=== PATIENT | male | born 1990 | race Caucasian/White ===

== ENCOUNTER 2019-12-12 18:00 | Emergency (ER) | payer OTHER ==
[~2019-12-12] VITALS: Ht 188 cm; Wt 113.4 kg
--- OUTSIDE RECORDS SUMMARY | ~2019-12-12 | XMS | Encounter Summary ---
Demographics + + + | Address | [address] | | | [place] [address] | + + + | Home Phone | | + + + | Preferred Language | Unknown | + + + | Marital Status | | + + + | Church Affiliation | Unknown | + + + | Race | Unknown | + + + | Ethnic Group | Unknown | + + + Author + + + | Author | [facility] | | | and [place] | + + + | Organization | [facility] | | | and [place] | + + + | Address | Unknown | + + + | Phone | Unavailable | + + + Support + + + + + | Name | Relationship | Address | Phone | + + + + + | Jocelyn Spear | ECON | [address] | | | | | [place], | | | | | [place] [address] | | + + + + + Care Team Providers + +------+ + | Care Animal Assistant Name | Role | Phone | + +------+ + PCP | Unavailable | + +------+ + Encounter Details +--------+ + + + + | Date | Type | Department | Care Team | Description | +--------+ + + + + | 06/18/ | Orders Only | [facility] | Catalino Valdez, | | | 2018 | | CONVERSION DEP [address] | MD [address] | | | | | [address] | [place] [address] | | | | | [place], [place] | [phone] | | | | | [address] | | | | | | [phone] | | | +--------+ + + + + Social History + +-------+ +--------+------+ | Tobacco Use | Types | Packs/Day | Years | Date | | | | | Used | | + +-------+ +--------+------+ | Never Assessed | | | | | + +-------+ +--------+------+ + + + | Sex Assigned at | Date Recorded | | | | + + + | Not on file | | + + + + + + + | Job Start Date | Occupation | Industry | + + + + | Not on file | Not on file | Not on file | + + + + + + + + | Travel History | Travel Start | Travel End | + + + + + + | No recent travel history available. | + + documented as of this encounter Plan of Treatment Not on filedocumented as of this encounter Visit Diagnoses Not on filedocumented in this encounter"
--- OUTSIDE RECORDS SUMMARY | ~2019-12-12 | XMS | Encounter Summary ---
Demographics + + + | Address | [address] | | | [place] [address] | + + + | Home Phone | | + + + | Preferred Language | Unknown | + + + | Marital Status | | + + + | Sikh Affiliation | Unknown | + + + | Race | White | + + + | Ethnic Group | Not or | + + + Author + + + | Author | [facility] | + + + | Organization | [facility] | + + + | Address | Unknown | + + + | Phone | Unavailable | + + + Support + + +---------+ + | Name | Relationship | Address | Phone | + + +---------+ + | Jocelyn Spear | ECON | Unknown | | + + +---------+ + Care Team Providers + +------+ + | Care Patient Escort Name | Role | Phone | + +------+ + | No Pcp Per Patient | PCP | Unavailable | + +------+ + Reason for Visit +--------+ + | Reason | Comments | +--------+ + | Other | Care everywhere query | +--------+ + Encounter Details +--------+ + + + + | Date | Type | Department | Care Team | Description | +--------+ + + + + | 07/06/ | Abstract | Neurology at | [place], | Other (Care | | 2018 | | [facility] & | Steph Becerril MD | everywhere query) | | | | Healing [address] | [address] | | | | | Ave Mailcode: CH8C | [place], [place] | | | | | [facility] | [address] | | | | | and [place], | [phone] | | | | | [facility] | | | | | | Floor [facility] [place] | | | | | | [address] | | | | | | [phone] | | | +--------+ + + + [...]
--- OUTSIDE RECORDS SUMMARY | ~2019-12-12 | XMS | Encounter Summary ---
Demographics + + + | Address | [address] | | | [place] [address] | + + + | Home Phone | | + + + | Preferred Language | Unknown | + + + | Marital Status | | + + + | Quaker Affiliation | Unknown | + + + | Race | Unknown | + + + | Ethnic Group | Unknown | + + + Author + + + | Author | [facility] | | | and [place] | + + + | Organization | [facility] | | | and [place] | + + + | Address | Unknown | + + + | Phone | Unavailable | + + + Support + + + + + | Name | Relationship | Address | Phone | + + + + + | Jocelyn Spear | ECON | [address] | | | | | [place], | | | | | [place] [address] | | + + + + + Care Team Providers + +------+ + | Care Research Aide Name | Role | Phone | + +------+ + PCP | Unavailable | + +------+ + Encounter Details +--------+ + + + + | Date | Type | Department | Care Team | Description | +--------+ + + + + | 12/28/ | Emergency | [facility] | Catalino Valdez, | | | 2017 | | MEDICAL CENTER | MD [address] | | | | | EMERGENCY CENTER | [place] [address] | | | | | [address] | [phone] | | | | | [place], [place] | | | | | | [address] | | | | | | [phone] | | | +--------+ + + + [...] + + documented as of this encounter Last Filed Vital Signs + + + + + | Vital Sign | Reading | Time Taken | Comments | + + + + + | Blood Pressure | 136/82 | 12/28/2017 11:42 AM | | | | | PDT | | + + + + + | Pulse | 88 | 12/28/2017 11:42 AM | | | | | PDT | | + + + + + | Temperature | 37.2 C (98.9 F) | 12/28/2017 11:42 AM | | | | | PDT | | + + + + + | Respiratory Rate | 18 | 12/28/2017 11:42 AM | | | | | PDT | | + + + + + | Oxygen Saturation | - | - | | + + + + + | Inhaled Oxygen | - | - | | | Concentration | | | | + + + + + | Weight | 100.7 kg (222 lb) | 12/28/2017 11:42 AM | | | | | PDT | | + + + + + | Height | - | - | | + + + + + | Body Mass Index | 28.5 | 03/07/2017 1:09 PM | | | | | PDT | | + + + + + documented in this encounter Plan of Treatment Not on filedocumented as of this encounter Visit Diagnoses Not on filedocumented in this encounter"
--- OUTSIDE RECORDS SUMMARY | ~2019-12-12 | XMS | Encounter Summary ---
Demographics + + + | Address | [address] | | | [place] [address] | + + + | Home Phone | | + + + | Preferred Language | Unknown | + + + | Marital Status | | + + + | Mandaeism Affiliation | Unknown | + + + | Race | White | + + + | Ethnic Group | Not or | + + + Author + + + | Author | [facility] | + + + | Organization | [facility] | + + + | Address | Unknown | + + + | Phone | Unavailable | + + + Support + + +---------+ + | Name | Relationship | Address | Phone | + + +---------+ + | Jocelyn Spear | ECON | Unknown | | + + +---------+ + Care Team Providers + +------+ + | Care Air Conditioning Manager Name | Role | Phone | + [...] Other (Care | | 2018 | | [facility] & | Steph Becerril MD | everywhere query) | | | | Healing [address] | [address] | | | | | Ave Mailcode: CH8C | [place], [place] | | | | | [facility] | [address] | | | | | and [place], | [phone] | | | | | [facility] | | | | | | Floor [facility] [place] | | | | | | [address] | | | | | | [phone] | | | +--------+ + + + [...]
--- OUTSIDE RECORDS SUMMARY | ~2019-12-12 | XMS | Encounter Summary ---
Demographics + + + | Address | [address] | | | [place] [address] | + + + | Home Phone | | + + + | Preferred Language | Unknown | + + + | Marital Status | | + + + | Restorationism Affiliation | Unknown | + + + | Race | Unknown | + + + | Ethnic Group | Unknown | + + + Author + + + | Author | [facility] | | | and [place] | + + + | Organization | [facility] | | | and [place] | + + + | Address | Unknown | + + + | Phone | Unavailable | + + + Support + + + + + | Name | Relationship | Address | Phone | + + + + + | Jocelyn Spear | ECON | [address] | | | | | [place], | | | | | [place] [address] | | + + + + + Care Team Providers + +------+ + | Care Equipment Application Specialist Name | Role | Phone | + +------+ + PCP | Unavailable | + +------+ + Encounter Details +--------+ + + + + | Date | Type | Department | Care Team | Description | +--------+ + + + + | 12/28/ | Emergency | [facility] | Jered Curtis, | Bronchitis | | 2018 | | MEDICAL CENTER | MD [address] | | | | | EMERGENCY [place] | [place] | | | | | [address] | [address] | | | | | [place] | | | | | | [address] | | | | | | [phone] | | | +--------+ + + + [...] + + + | Blood Pressure | 121/70 | 12/28/2017 2:34 PM | | | | | PDT | | + + + + + | Pulse | 78 | 12/28/2017 2:34 PM | | | | | PDT | | + + + + + | Temperature | 36.6 C (97.9 F) | 12/28/2017 2:34 PM | | | | | PDT | | + + + + + | Respiratory Rate | 14 | 12/28/2017 2:34 PM | | | | | PDT | | + + + + + | Oxygen Saturation | - | - | | + + + + + | Inhaled Oxygen | - | - | | | Concentration | | | | + + + + + | Weight | 100.8 kg (222 lb 3.5 | 12/28/2017 2:34 PM | | | | oz) | PDT | | + + + + + | Height | 188 cm (6' 2") | 12/28/2017 2:34 PM | | | | | PDT | | + + + + + | Body Mass Index | 28.53 | 12/28/2017 2:34 PM | | | | | PDT | | + + + + + documented in this encounter Progress Notes Amy Levine ARNP - 12/28/2017 2:35 PM PDT Progress Notes by DAVE Dao at 12/28/17 5231 Author: DAVE Dao Service: Emergency Department Author Type: Nurse Melva nova Filed: 12/28/17 1624 Date of Service: 12/28/17 6599 Status: Signed Car Ferrier: DAVE Dao (Nurse Practitioner) Reviewed. No further action is necessary at this time. documented in th is encounter Plan of Treatment Not on filedocumented as of this encounter Procedures + +--------+ + + + | Procedure Name | Priori | Date/Time | Associated Diagnosis | Comments | | | ty | | | | + +--------+ + + + | XR CHEST 2 VIEWS | Routin | 12/28/2017 | | Results for this | | | e | 2:02 PM | | procedure are in the | | | | PDT | | results section. | + +--------+ + + + documented in this encounter Results XR Chest 2 Vws (12/28/2017 2:02 PM PDT) + + | Specimen | + + | | + + + + + | Impressions | Performed At | + + + | 1. No acute cardiopulmonary process noted. Electronically | | | signed by Garrett Gabriel MD on 12/28/2017 2:04 PM | | + + + + + + | Narrative | Performed At | + + + | [facility] 1990 27 years XR CHEST 2 VIEW FRONTAL AND | | | LATERAL 12/28/2017 2:02 PM INDICATION: Shortness of breath. | | | COMPARISON study: 10/28/2017 at 2138 hours TECHNIQUE: 2 views | | | FINDINGS: Lungs appear clear. Cardiomediastinal silhouette appears | | | unremarkable. Chronic appearing mild anterior wedge compression of 2 | | | mid thoracic spine vertebral bodies. No pleural effusion seen. | | + + + + + | Procedure Note | + + | Giuliano Thompson Conversion - 03/15/2019 5:46 AM PDT [facility] yearsXR CHEST | | 2 VIEW FRONTAL AND LATERAL12/28/2017 2:02 PM INDICATION: Shortness of breath. COMPARISON | | study: 10/28/2017 at 2138 hours TECHNIQUE: 2 views FINDINGS: Lungs appear clear. | | Cardiomediastinal silhouette appears unremarkable. Chronic appearing mild anterior wedge | | compression of 2 mid thoracic spine vertebral bodies. No pleural effusion seen. | | IMPRESSION: 1. No acute cardiopulmonary process noted. | | | |COMPARISON study: 10/28/2017 at 2138 hours | | | |TECHNIQUE: 2 views | | | |FINDINGS: Lungs appear clear. Cardiomediastinal silhouette appears unremarkable. Chronic a ppearing mild anterior wedge compression of 2 mid thoracic spine vertebral bodies. No pleura l effusion seen. | | | |IMPRESSION: | |1. No acute cardiopulmonary process noted. | | | | | + + documented in this encounter Visit Diagnoses + + | Diagnosis | + + | Bronchitis Bronchitis, not specified as acute or chronic | + + documented in this encounter
--- OUTSIDE RECORDS SUMMARY | ~2019-12-12 | XMS | Clinical Summary ---
Demographics + + + | Address | [address] | | | [place] [address] | + + + | Home Phone | | + + + | Preferred Language | Unknown | + + + | Marital Status | | + + + | Congregation Affiliation | Unknown | + + + | Race | Unknown | + + + | Ethnic Group | Unknown | + + + Author + + + | Author | [facility] | | | and [place] | + + + | Organization | [facility] | | | and [place] | + + + | Address | Unknown | + + + | Phone | Unavailable | + + + Support + + + + + | Name | Relationship | Address | Phone | + + + + + | Jocelyn Spear | ECON | [address] | | | | | [place], | | | | | [place] [address] | | + + + + + Care Team Providers + +------+ + | Care Unit Manager Name | Role | Phone | + +------+ + PCP | Unavailable | + +------+ + Allergies + + + + + + | Active Allergy | Reactions | Severity | Noted | Comments | | | | | Date | | + + + + + + | Bee Venom | Anaphylaxis | High | 03/07/20 | | | | | | 17 | | + + + + + + | Erythromycin | Hives | High | 09/12/19 | Hives | | | | | 16 | | + + + + + + | Penicillins | Hives | High | 09/12/19 | Hives | | | | | 16 | | + + + + + + Medications + + + +---------+------+------+-------+ | Medication | Sig | Dispensed | Refills | Star | End | Statu | | | | | | t | Date | s | | | | | | Date | | | + + + +---------+------+------+-------+ | | Take 1-2 tablets by | 20 | 0 | 11/1 | | Activ | | HYDROcodone-acetamin | mouth every 6 (six) | tablet | | /20 | | e | | ophen (NORCO) 5-325 | hours as needed for | | | 18 | | | | mg per tablet | Pain. Do not exceed | | | | | | | | 8 in a 24 hour | | | | | | | | period. Do not take | | | | | | | | Tylenol, as this | | | | | | | | medication has | | | | | | | | Tylenol in it. | | | | | | + + + +---------+------+------+-------+ Active Problems Not on file Social History + +-------+ +--------+------+ | Tobacco Use | Types | Packs/Day | Years | Date | | | | | Used | | + +-------+ +--------+------+ | Current Every Day | | 0.5 | | | | Smoker | | | | | + +-------+ [...] recent travel history available. | + + Last Filed Vital Signs + + + + + | Vital Sign | Reading | Time Taken | Comments | + + + + + | Blood Pressure | 118/70 | 06/21/2018 11:06 PM | | | | | PST | | + + + + + | Pulse | 87 | 06/21/2018 11:06 PM | | | | | PST | | + + + + + | Temperature | 36.5 C (97.7 F) | 06/21/2018 11:06 PM | | | | | PST | | + + + + + | Respiratory Rate | 20 | 06/21/2018 11:06 PM | | | | | PST | | + + + + + | Oxygen Saturation | - | - | | + + + + + | Inhaled Oxygen | - | - | | | Concentration | | | | + + + + + | Weight | 111.6 kg (246 lb 0.5 | 06/21/2018 11:06 PM | | | | oz) | PST | | + + + + + | Height | 188 cm (6' 2") | 12/28/2017 2:34 PM | | | | | PDT | | + + + + + | Body Mass Index | 31.59 | 12/28/2017 2:34 PM | | | | | PDT | | + + + + + Plan of Treatment + + + + + | Health Maintenance | Due Date | Last Done | Comments | + + + + + | Vaccine: | | | | | Pneumococcal 19-64 | 6 | | | | (1 of 1 - PPSV23) | | | | + + + + + | Vaccine: | | | | | Dtap/Tdap/Td (1 - | 1 | | | | Tdap) | | | | + + + + + | Vaccine: Influenza | | | | | (Season Ended) | 0 | | | + + + + + Results Not on filefrom Last 3 Months
--- OUTSIDE RECORDS SUMMARY | ~2019-12-12 | XMS | Encounter Summary ---
Demographics + + + | Address | [address] | | | [place] [address] | + + + | Home Phone | | + + + | Preferred Language | Unknown | + + + | Marital Status | | + + + | Uatsdin Affiliation | Unknown | + + + | Race | Unknown | + + + | Ethnic Group | Unknown | + + + Author + + + | Author | [facility] | | | and [place] | + + + | Organization | [facility] | | | and [place] | + + + | Address | Unknown | + + + | Phone | Unavailable | + + + Support + + + + + | Name | Relationship | Address | Phone | + + + + + | Jocelyn Spear | ECON | [address] | | | | | [place], | | | | | [place] [address] | | + + + + + Care Team Providers + +------+ + | Care Vision Therapist Name | Role | Phone | + +------+ + PCP | Unavailable | + +------+ + Encounter Details +--------+ + + + + | Date | Type | Department | Care Team | Description | +--------+ + + + + | 11/17/ | Emergency | [facility] | Catalino Valdez, | Muscle spasm; Acute | | 2018 | | [facility] | MD Janelle PLASCENCIA | midline low back | | | | [facility] | [place] [address] | pain without | | | | [address] | [phone] | sciatica | | | | [place], [place] | | | | | | [address] | | | | | | [phone] | | | +--------+ + + + [...] + + + | Blood Pressure | 126/76 | 06/18/2018 8:05 PM | | | | | PST | | + + + + + | Pulse | 92 | 06/18/2018 8:05 PM | | | | | PST | | + + + + + | Temperature | 36.4 C (97.6 F) | 06/18/2018 8:05 PM | | | | | PST | | + + + + + | Respiratory Rate | 16 | 06/18/2018 8:05 PM | | | | | PST | | + + + + + | Oxygen Saturation | - | - | | + + + + + | Inhaled Oxygen | - | - | | | Concentration | | | | + + + + + | Weight | 99.8 kg (220 lb) | 06/18/2018 8:05 PM | | | | | PST | | + + + + + | Height | - | - | | + + + + + | Body Mass Index | 28.25 | 12/28/2017 2:34 PM | | | | | PDT | | + + + + + documented in this encounter Medications at Time of Discharge + + + +---------+ + + | Medication | Sig | Dispensed | Refills | Start | End Date | | | | | | Date | | + + + +---------+ + + | | Take 1-2 tablets by | 20 | 0 | 11/17/20 | | | HYDROcodone-acetamin | mouth every 6 (six) | tablet | | 18 | | | ophen (NORCO) 5-325 | hours as needed for | | | | | | mg per tablet [...] in it. | | | | | + + + +---------+ + + documented as of this encounter Plan of Treatment Not on filedocumented as of this encounter Procedures + +--------+ + + + | Procedure Name | Priori | Date/Time | Associated Diagnosis | Comments | | | ty | | | | + +--------+ + + + | XR LUMBAR SPINE 2 OR | Routin | 06/18/2018 | | Results for this | | 3 VW | e | 6:52 PM | | procedure are in the | | | | PST | | results section. | + +--------+ + + + | EXTERNAL LAB: CBC | Routin | 06/18/2018 | | Results for this | | | e | 6:23 PM | | procedure are in the | | | | PST | | results section. | + +--------+ + + + | SEDIMENTATION RATE, | Routin | 06/18/2018 | | Results for this | | AUTOMATED | e | 6:23 PM | | procedure are in the | | | | PST | | results section. | + +--------+ + + + | C-REACTIVE PROTEIN | Routin | 06/18/2018 | | Results for this | | | e | 6:23 PM | | procedure are in the | | | | PST | | results section. | + +--------+ + + + | COMPREHENSIVE | Routin | 06/18/2018 | | Results for this | | METABOLIC PANEL | e | 6:23 PM | | procedure are in the | | | | PST | | results section. | + +--------+ + + + documented in this encounter Results XR Lumbar Spine 2 or 3 Vw (06/18/2018 6:52 PM PST) + + | Specimen | + + | | + + + + + | Impressions | Performed At | + + + | FINDINGS/ IMPRESSION: 1. No acute fracture. Deformity of the left | | | L4 transverse process, possible developmental or sequel of remote | | | trauma, better evaluated on CT dated 03/07/2017. 2. Loss of lumbar | | | lordosis. No listhesis 3. Mildly decreased intervertebral disc | | | height at L5-S1. 4. Subtle sclerosis about both sacroiliac joints, | | | possible bilateral sacroiliitis, incompletely evaluated. Dedicated | | | sacroiliac joint radiographs can be considered for further evaluation | | | as clinically warranted. | | + + + + + + | Narrative | Performed At | + + + | [facility] 1990 XR LUMBAR SPINE LIMITED 2-3 VIEW | | | 06/18/2018 6:52 PM INDICATION: Back pain COMPARISON: None | | | TECHNIQUE: Lumbar spine series, 3 views | | + + + + + | Procedure Note | + + | Giuliano Thompson Nomi - 03/15/2019 5:46 AM PDT [facility]1990XR LUMBAR SPINE | | LIMITED 2-3 VIEW06/18/2018 6:52 PM INDICATION: Back pain COMPARISON: None TECHNIQUE: | | Lumbar spine series, 3 views IMPRESSION: FINDINGS/ IMPRESSION:1. No acute fracture. | | Deformity of the left L4 transverse process, possible developmental or sequel of remote | | trauma, better evaluated on CT dated 03/07/2017.2. Loss of lumbar lordosis. No | | listhesis3. Mildly decreased intervertebral disc height at L5-S1.4. Subtle sclerosis | | about both sacroiliac joints, possible bilateral sacroiliitis, incompletely evaluated. | | Dedicated sacroiliac joint radiographs can be considered for further evaluation as | | clinically warranted. | |TECHNIQUE: Lumbar spine series, 3 views | | | |IMPRESSION: | |FINDINGS/ IMPRESSION: | |1. No acute fracture. Deformity of the left L4 transverse process, possible developmental or sequel of remote trauma, better evaluated on CT dated 03/07/2017. | |2. Loss of lumbar lordosis. No listhesis | |3. Mildly decreased intervertebral disc height at L5-S1. | |4. Subtle sclerosis about both sacroiliac joints, possible bilateral sacroiliitis, incompl etely evaluated. Dedicated sacroiliac joint radiographs can be considered for further evalua tion as clinically warranted. | | | | | + + Sedimentation rate, automated (06/18/2018 6:23 PM PST) + + + + + + | Component | Value | Ref Range | Performed | Pathologist | | | | | At | Signature | + + + + + + | Sed Rate | 14Comment: Testing | 0 - 15 mm/Hr | EXTERNAL | | | | performed at [facility], [address] | | LAB | | | | [address], | | | | | | [place] [address] | | | | + + + + + + + + | Specimen | + + | Blood specimen | | (specimen) | + + + +---------+ + + | Performing | Address | City/State/Zipcode | Phone Number | | Organization | | | | + +---------+ + + | EXTERNAL LAB | | | | + +---------+ + + External Lab: CBC (06/18/2018 6:23 PM PST) + + + + + + | Component | Value | Ref Range | Performed | Pathologist | | | | | At | Signature | + + + + + + | WBC | 15.83 (H) | 3.80 - 11.00 | EXTERNAL | | | | | K/uL | LAB | | + + + + + + | Red Blood | 5.43 | 4.20 - 5.70 | EXTERNAL | | | Cells | | M/uL | LAB | | | Counted | | | | | + + + + + + | Hemoglobin | 16.3 | 13.2 - 17.0 | EXTERNAL | | | | | g/dL | LAB | | + + + + + + | Hematocrit, | 47.3 | 39.0 - 50.0 % | EXTERNAL | | | POC | | | LAB | | + + + + + + | MCV | 87.1 | 80.0 - 100.0 fl | EXTERNAL | | | | | | LAB | | + + + + + + | MCH | 30.0 | 27.0 - 34.0 pg | EXTERNAL | | | | | | LAB | | + + + + + + | MCHC | 34.5 | 32.0 - 35.5 | EXTERNAL | | | | | g/dL | LAB | | + + + + + + | RDW-CV | 40.2 | 37 - 53 fl | EXTERNAL | | | | | | LAB | | + + + + + + | Platelet | 347 | 150 - 400 K/uL | EXTERNAL | | | Count | | | LAB | | | Plasma | | | | | + + + + + + | MPV | 9.4 | fl | EXTERNAL | | | | | | LAB | | + + + + + + | Differentia | AUTOMATED | | EXTERNAL | | | l Type | | | LAB | | + + + + + + | Nucleated | 0.0 | /100WBC | EXTERNAL | | | Red Blood | | | LAB | | | Cells | | | | | + + + + + + | % Segmented | 57.80 | % | EXTERNAL | | | | | | LAB | | | Neutrophils | | | | | + + + + + + | % Immature | 0.30 | % | EXTERNAL | | | Granulocyte | | | LAB | | | s | | | | | + + + + + + | % | 30.40 | % | EXTERNAL | | | Lymphocytes | | | LAB | | + + + + + + | % Monocytes | 6.80 | % | EXTERNAL | | | | | | LAB | | + + + + + + | % | 3.90 | % | EXTERNAL | | | Eosinophils | | | LAB | | + + + + + + | % Basophils | 0.80 | % | EXTERNAL | | | | | | LAB | | + + + + + + | Absolute | 9.14 (H) | 1.90 - 7.40 | EXTERNAL | | | Segmented | | K/uL | LAB | | | Neutrophils | | | | | + + + + + + | Absolute | 0.05 | K/uL | EXTERNAL | | | Immature | | | LAB | | | Granulocyte | | | | | | s | | | | | + + + + + + | Absolute | 4.82 (H) | 1.00 - 3.90 | EXTERNAL | | | Lymphocytes | | K/uL | LAB | | + + + + + + | Absolute | 1.08 (H) | 0.00 - 0.80 | EXTERNAL | | | Monocytes | | K/uL | LAB | | + + + + + + | Absolute | 0.61 (H) | 0.00 - 0.50 | EXTERNAL | | | Eosinophils | | K/uL | LAB | | + + + + + + | Absolute | 0.13 (H)Comment: Testing | 0.00 - 0.10 | EXTERNAL | | | Basophils | performed at [facility], [address] | | | | [address], | | | | | | [place] [address] | | | | + + + + + + + + | Specimen | + + | Blood specimen | | (specimen) | + + + +---------+ + + | Performing | Address | City/State/Zipcode | Phone Number | | Organization | | | | + +---------+ + + | EXTERNAL LAB | | | | + +---------+ + + C-Reactive Protein (06/18/2018 6:23 PM PST) + + + + + + | Component | Value | Ref Range | Performed | Pathologist | | | | | At | Signature | + + + + + + | CRP | 1.7 (H)Comment: Testing | mg/dL | EXTERNAL | | | | performed at [facility], [address] | | LAB | | | | [address], | | | | | | [place] [address] | | | | + + + + + + + + | Specimen | + + | Blood specimen | | (specimen) | + + + +---------+ + + | Performing | Address | City/State/Zipcode | Phone Number | | Organization | | | | + +---------+ + + | EXTERNAL LAB | | | | + +---------+ + + Comprehensive Metabolic Panel (06/18/2018 6:23 PM PST) + + + + + + | Component | Value | Ref Range | Performed | Pathologist | | | | | At | Signature | + + + + + + | Na | 139 | 135 - 145 | EXTERNAL | | | | | mmol/L | LAB | | + + + + + + | K | 3.8 | 3.5 - 4.9 | EXTERNAL | | | | | mmol/L | LAB | | + + + + + + | Cl | 103 | 99 - 109 mmol/L | EXTERNAL | | | | | | LAB | | + + + + + + | CO2 | 25 | 23 - 32 mmol/L | EXTERNAL | | | | | | LAB | | + + + + + + | Anion Gap | 15 | 5 - 20 mmol/L | EXTERNAL | | | | | | LAB | | + + + + + + | Glucose, | 89 | 65 - 99 mg/dL | EXTERNAL | | | Fasting | | | LAB | | + + + + + + | BUN | 15 | 8 - 25 mg/dL | EXTERNAL | | | | | | LAB | | + + + + + + | Creatinine | 1.01 | 0.70 - 1.30 | EXTERNAL | | | | | mg/dL | LAB | | + + + + + + | BUN/Creatin | 15 | | EXTERNAL | | | ine Ratio | | | LAB | | + + + + + + | Calcium | 9.3 | 8.5 - 10.5 | EXTERNAL | | | | | mg/dL | LAB | | + + + + + + | Protein, | 7.7 | 6.3 - 8.2 g/dL | EXTERNAL | | | Total | | | LAB | | + + + + + + | Albumin | 3.9 | 3.6 - 5.0 g/dL | EXTERNAL | | | | | | LAB | | + + + + + + | Globulin | 3.8 | 1.3 - 4.9 g/dL | EXTERNAL | | | | | | LAB | | + + + + + + | A/G Ratio | 1.0 | 1.0 - 2.4 | EXTERNAL | | | | | | LAB | | + + + + + + | Bilirubin | 0.3 | 0.1 - 1.5 mg/dL | EXTERNAL | | | Total | | | LAB | | + + + + + + | ALP, | 76 | 35 - 115 U/L | EXTERNAL | | | External | | | LAB | | + + + + + + | AST | 19 | 10 - 45 U/L | EXTERNAL | | | | | | LAB | | + + + + + + | ALT | 54 | 10 - 65 U/L | EXTERNAL | | | | | | LAB | | + + + + + + | Estimated | >60Comment: GFR <60: | mL/min/1.73m2 | EXTERNAL | | | GFR | CHRONIC KIDNEY DISEASE, | | LAB | | | | IF FOUND OVER A 3 MONTH | | | | | | PERIOD.GFR <15: KIDNEY | | | | | | FAILURE.FOR | | | | | | AMERICANS, MULTIPLY THE | | | | | | CALCULATED GFR BY | | | | | | 1.210.This eGFR is | | | | | | calculated using the | | | | | | MDRD IDMS traceable | | | | | | equation.Testing | | | | | | performed at [facility], [address] | | | | | | [address], | | | | | | [place] [address] | | | | + + + + + + + + | Specimen | + + | Blood specimen | | (specimen) | + + + +---------+ + + | Performing | Address | City/State/Zipcode | Phone Number | | Organization | | | | + +---------+ + + | EXTERNAL LAB | | | | + +---------+ + + documented in this encounter Visit Diagnoses + + | Diagnosis | + + | Muscle spasm Spasm of muscle | + + | Acute midline low back pain without sciatica | + + documented in this encounter"
--- OUTSIDE RECORDS SUMMARY | ~2019-12-12 | XMS | Encounter Summary ---
Demographics + + + | Address | [address] | | | [place] [address] | + + + | Home Phone | | + + + | Preferred Language | Unknown | + + + | Marital Status | | + + + | Congregational Affiliation | Unknown | + + + | Race | Unknown | + + + | Ethnic Group | Unknown | + + + Author + + + | Author | [facility] | | | and [place] | + + + | Organization | [facility] | | | and [place] | + + + | Address | Unknown | + + + | Phone | Unavailable | + + + Support + + + + + | Name | Relationship | Address | Phone | + + + + + | Jocelyn Spear | ECON | [address] | | | | | [place], | | | | | [place] [address] | | + + + + + Care Team Providers + +------+ + | Care Wind Operations Supervisor Name | Role | Phone | + +------+ + PCP | Unavailable | + +------+ + Encounter Details +--------+ + + + + | Date | Type | Department | Care Team | Description | +--------+ + + + + | 09/27/ | Emergency | [facility] | Chad Ole[facility] | Unspecified Chest | | 2006 | | [facility] | MD [place] [address] | Pain | | | | EMERG[facility]Y CENTER | [place], [place] | | | | | [address] | [address] | | | | | [place], [place] | [phone] | | | | | [address] | | | | | | [phone] | | | +--------+ + + + [...] filedocumented as of this encounter Visit Diagnoses + + | Diagnosis | + + | Chest pain, unspecified | + + documented in this encounter"
--- OUTSIDE RECORDS SUMMARY | ~2019-12-12 | XMS | Encounter Summary ---
Demographics + + + | Address | [address] | | | [place] [address] | + + + | Home Phone | | + + + | Preferred Language | Unknown | + + + | Marital Status | | + + + | Anabaptist Affiliation | Unknown | + + + | Race | Unknown | + + + | Ethnic Group | Unknown | + + + Author + + + | Author | [facility] | | | and [place] | + + + | Organization | [facility] | | | and [place] | + + + | Address | Unknown | + + + | Phone | Unavailable | + + + Support + + + + + | Name | Relationship | Address | Phone | + + + + + | Jocelyn Spear | ECON | [address] | | | | | [place], | | | | | [place] [address] | | + + + + + Care Team Providers + +------+ + | Care Mva Still Operator Name | Role | Phone | + +------+ + PCP | Unavailable | + +------+ + Encounter Details +--------+ + + + + | Date | Type | Department | Care Team | Description | +--------+ + + + + | 10/23/ | Hospital | [facility] | Allan Albright MD | OTHER CHEST PAIN; | | 2011 - | Encounter | MEDICAL CENTER | [address] | Syncope and | | | | CLINICAL DECISION | [place] [address] | collapse; | | 10/24/ | | [address] | [phone] | 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 | | [place], [place] | | cannabis abuse, | | | | [address] | | unspecified; Tobacco | | | | [phone] | | use disorder; | | | | | | Family history of | | | | | | ischemic heart | | | | | | disease; Unspecified | | | | | | chest pain | +--------+ + + + + Social [...] | + +--------+ + + + | ECHO COMPLETE | Routin | 10/24/2010 | | Results for this | | | e | 7:45 AM | | procedure are in the | | | | PDT | | results section. | + +--------+ + + + | XR CHEST 2 VIEWS | Routin | 10/23/2010 | | Results for this | | | e | 6:30 PM | | procedure are in the | | | | PDT | | results section. | + +--------+ + + + documented in this encounter Results ECHO Complete (10/24/2010 7:45 AM PDT) + + | Specimen | + + | | + + + + + | Narrative | Performed At | + + + | [place] [address] | | | Patient Name: KENY SPEAR Date of : | | | 1990 Medical Record: [id number] Account: [id number] | | | Exam Date/Time: 10/24/2010 07:05 Performing | | | Physician: Kirk Berrios MD Order Detail: [id number] Exam Description: | | | ECHO CARDIAC ADULT WITH DOPPLER COLOR FLOW | | | | | | INDICATIONS evaluate lv fxn & valvular fxn | | | CONCLUSIONS 1. Essentially normal study. 2. Sinus | | | rhythm. 3. Overall left ventricular systolic function is normal with, | | | an EF between 65 - 70 %. 4. The right ventricle is normal in size | | | and function. 5. The left atrium is normal in size. 6. The right | | | atrium is mildly enlarged. 7. The aortic valve is trileaflet, and | | | appears anatomically normal. No aortic stenosis or regurgitation. 8. | | | Normal appearing mitral valve. 9. The tricuspid valve appears | | | structurally normal. 10. Mild tricuspid regurgitation present. 11. | | | Pulmonic valve appears structurally normal. 12. There is no | | | pericardial effusion. FINDINGS -------- ECG rhythm: Sinus | | | rhythm. Study: A 2-dimensional transthoracic echocardiogram with | | | m-mode, spectral and color flow Doppler was perfomed. Study: This was | | | a technically adequate study. Left Ventricle: Overall left | | | ventricular systolic function is normal with, an EF between 65 - 70 %. | | | Left Ventricle: The left ventricle cavity size is normal. Left | | | Ventricle: Left ventricular wall thickness is normal. Right | | | Ventricle: The right ventricle is normal in size and function. Left | | | Atrium: The left atrium is normal in size. Left Atrium: The left | | | atrial size is normal Left Atrium: , and the LA measures 3.4cm. | | | Right Atrium: The right atrium is mildly enlarged Right Atrium: , and | | | the RA measures 5.1cm. Aortic Valve: The aortic valve is trileaflet, | | | and appears anatomically normal. No aortic stenosis or regurgitation. | | | Mitral Valve: Normal appearing mitral valve. Tricuspid Valve: The | | | tricuspid valve appears structurally normal. Tricuspid Valve: Mild | | | tricuspid regurgitation present. Tricuspid Valve: Right ventricular | | | systolic pressure (pulmonary artery systolic pressure) is normal at < | | | 35 mmHg. Pulmonic Valve: Pulmonic valve appears structurally normal. | | | Pericardium: There is no pericardial effusion. IVC/Hepatic Veins: | | | The inferior vena cava is normal in size and collapses > 50 % with | | | sniff, indicating normal central venous pressures. Mass: No mass | | | visualized Thrombus: No clot visualized Septum: No ASD observed. | | | Septum: No VSD observed. MEASUREMENTS Ao Diam: | | | 3.49 cm IVC: 1.46 cm LA Diam: 3.44 cm LA Major: 5.28 cm | | | LVOT Diam: 2.23 cm RA Major: 5.06 cm RVIDd: 3.34 cm Ao | | | Diam: 3.46 cm AV Cusp: 2.43 cm LA Diam: 3.91 cm LA/Ao: | | | 1.13 %FS: 36.17 % EDV(Teich): 118.24 ml EF(Teich): 65.58 % | | | ESV(Teich): 40.69 ml IVSd: 0.90 cm IVSs: 1.11 cm LVIDd: | | | 5.00 cm LVIDs: 3.19 cm LVPWd: 0.85 cm LVPWs: 1.22 cm | | | SV(Teich): 77.54 ml D-E Excursion: 2.66 cm E-F Ware: 0.20 | | | m/s HR: 53.21 BPM AV maxP.38 mmHg AV meanP.94 mmHg | | | AV Vmax: 1.26 m/s AV Vmean: 0.77 m/s AV VTI: 25.84 cm | | | SAMIA Vmax: 3.20 cm2 SAMIA (VTI): 2.87 cm2 LVCI Dopp: 1.78 | | | l/minm2 LVCO Dopp: 4.15 l/min HR: 55.96 BPM LVOT maxPG: | | | 4.28 mmHg LVOT meanP.82 mmHg LVSI Dopp: 31.85 ml/m2 LVSV | | | Dopp: 74.21 ml LVOT Vmax: 1.03 m/s LVOT Vmean: 0.61 m/s | | | LVOT VTI: 18.95 cm MV A Mansoor: 0.37 m/s MV DecT: 199.93 ms | | | MV E Mansoor: 0.88 m/s MV E/A Ratio: 2.39 MV PHT: 59.05 ms MVA | | | By PHT: 3.72 cm2 MV A Dur: 121.99 ms Septal e': 0.13 m/s | | | Septal E/e': 6.36 Lateral e': 0.17 m/s Lateral E/e': 4.94 | | | P Vein A: 0.21 m/s P Vein A Dur: 88.72 ms P Vein D: 0.77 | | | m/s P Vein S/D Ratio: 0.91 P Vein S: 0.70 m/s HR: 53.74 | | | BPM PV maxP.77 mmHg PV meanP.09 mmHg PV Vmax: 0.83 | | | m/s PV Vmean: 0.46 m/s PV VTI: 16.39 cm RAP: 5 mmHg | | | RVSP: 23.17 mmHg TR maxP.17 mmHg TR Vmax: 2.13 m/s TV | | | A Mansoor: 0.25 m/s TV Dec Ware: 2.14 m/s2 TV Dec Time: | | | 252.95 ms TV E Mansoor: 0.54 m/s TV E/A Ratio: 2.09 | | | Resident Intern: AG Authenticated by: Kirk Berrios MD Report Date/Time: | | | 10-24-2010 11:42:19 | | + + + + + | Procedure Note | + + | Giuliano Thompson Conversion - 03/25/2019 3:07 PM [facility] | | [place], [place] [address]Yn: Patient Name: Caren SPEAR of : | | 1990Medical Record: [id number]: [id number] | | Date/Time: 10/24/2010 07:05Performing Physician: Kirk Berrios MDOrder Detail: | | Description: ECHO CARDIAC ADULT WITH DOPPLER COLOR | | FLOW INDICATIONS | | -evaluate lv fxn & valvular fxn CONCLUSIONS 1. Essentially normal study.2. | | Sinus rhythm.3. Overall left ventricular systolic function is normal with, an EF between | | 65 - 70 %.4. The right ventricle is normal in size and function.5. The left atrium is | | normal in size.6. The right atrium is mildly enlarged.7. The aortic valve is trileaflet, | | and appears anatomically normal. No aortic stenosis or regurgitation.8. Normal | | appearing mitral valve.9. The tricuspid valve appears structurally normal.10. Mild | | tricuspid regurgitation present.11. Pulmonic valve appears structurally normal.12. There | | is no pericardial effusion. FINDINGS--------ECG rhythm: Sinus rhythm.Study: A | | 2-dimensional transthoracic echocardiogram with m-mode, spectral and color flow Doppler | | was perfomed.Study: This was a technically adequate study.Left Ventricle: Overall left | | ventricular systolic function is normal with, an EF between 65 - 70 %.Left Ventricle: | | The left ventricle cavity size is normal.Left Ventricle: Left ventricular wall thickness | | is normal.Right Ventricle: The right ventricle is normal in size and function.Left | | Atrium: The left atrium is normal in size.Left Atrium: The left atrial size is | | normalLeft Atrium: , and the LA measures 3.4cm.Right Atrium: The right atrium is mildly | | enlargedRight Atrium: , and the RA measures 5.1cm.Aortic Valve: The aortic valve is | | trileaflet, and appears anatomically normal. No aortic stenosis or regurgitation.Mitral | | Valve: Normal appearing mitral valve.Tricuspid Valve: The tricuspid valve appears | | structurally normal.Tricuspid Valve: Mild tricuspid regurgitation present.Tricuspid | | Valve: Right ventricular systolic pressure (pulmonary artery systolic pressure) is | | normal at < 35 mmHg.Pulmonic Valve: Pulmonic valve appears structurally | | normal.Pericardium: There is no pericardial effusion.IVC/Hepatic Veins: The inferior | | vena cava is normal in size and collapses > 50 % with sniff, indicating normal central | | venous pressures.Mass: No mass visualizedThrombus: No clot visualizedSeptum: No ASD | | observed.Septum: No VSD observed. MEASUREMENTS Ao Diam: 3.49 cmIVC: 1.46 | | cmLA Diam: 3.44 cmLA Major: 5.28 cmLVOT Diam: 2.23 cmRA Major: 5.06 cmRVIDd: | | 3.34 cmAo Diam: 3.46 cmAV Cusp: 2.43 cmLA Diam: 3.91 cmLA/Ao: 1.13%FS: 36.17 | | %EDV(Teich): 118.24 mlEF(Teich): 65.58 %ESV(Teich): 40.69 mlIVSd: 0.90 cmIVSs: | | 1.11 cmLVIDd: 5.00 cmLVIDs: 3.19 cmLVPWd: 0.85 cmLVPWs: 1.22 cmSV(Teich): | | 77.54 mlD-E Excursion: 2.66 cmE-F Ware: 0.20 m/sHR: 53.21 BPMAV maxP.38 | | mmHgAV meanP.94 mmHgAV Vmax: 1.26 m/Casi Vmean: 0.77 m/Casi VTI: 25.84 cmAVA | | Vmax: 3.20 cm2AVA (VTI): 2.87 lg1UBHP Dopp: 1.78 l/ryau5KBZR Dopp: 4.15 l/minHR: | | 55.96 BPMLVOT maxP.28 mmHgLVOT meanP.82 mmHgLVSI Dopp: 31.85 ml/m2LVSV | | Dopp: 74.21 mlLVOT Vmax: 1.03 m/sLVOT Vmean: 0.61 m/sLVOT VTI: 18.95 cmMV A Mansoor: | | 0.37 m/sMV DecT: 199.93 msMV E Mansoor: 0.88 m/sMV E/A Ratio: 2.39MV PHT: 59.05 | | msMVA By PHT: 3.72 cm2MV A Dur: 121.99 msSeptal e': 0.13 m/sSeptal E/e': | | 6.36Lateral e': 0.17 m/sLateral E/e': 4.94P Vein A: 0.21 m/sP Vein A Dur: 88.72 | | msP Vein D: 0.77 m/sP Vein S/D Ratio: 0.91P Vein S: 0.70 m/sHR: 53.74 BPMPV | | maxP.77 mmHgPV meanP.09 mmHgPV Vmax: 0.83 m/sPV Vmean: 0.46 m/sPV VTI: | | 16.39 cmRAP: 5 mmHgRVSP: 23.17 mmHgTR maxP.17 mmHgTR Vmax: 2.13 m/sTV A | | Mansoor: 0.25 m/sTV Dec Ware: 2.14 m/s2TV Dec Time: 252.95 msTV E Mansoor: 0.54 m/sTV | | E/A Ratio: 2.09 Resident Intern: CMAuthenticated by: Kirk Berrios MDReport Date/Time: | | 10-24-2010 11:42:19 | |Aortic Valve: The aortic valve is trileaflet, and appears anatomically normal. No aortic st enosis or regurgitation. | |Mitral Valve: Normal appearing mitral valve. | |Tricuspid Valve: The tricuspid valve appears structurally normal. | |Tricuspid Valve: Mild tricuspid regurgitation present. | |Tricuspid Valve: Right ventricular systolic pressure (pulmonary artery systolic pressure) i s normal at < 35 mmHg. | |Pulmonic Valve: Pulmonic valve appears structurally normal. | |Pericardium: There is no pericardial effusion. | |IVC/Hepatic Veins: The inferior vena cava is normal in size and collapses > 50 % with sniff , indicating normal central venous pressures. | |Mass: No mass visualized | |Thrombus: No clot visualized | |Septum: No ASD observed. | |Septum: No VSD observed. | | | |MEASUREMENTS | | | |Ao Diam: 3.49 cm | |IVC: 1.46 cm | |LA Diam: 3.44 cm | |LA Major: 5.28 cm | |LVOT Diam: 2.23 cm | |RA Major: 5.06 cm | |RVIDd: 3.34 cm | |Ao Diam: 3.46 cm | |AV Cusp: 2.43 cm | |LA Diam: 3.91 cm | |LA/Ao: 1.13 | |%FS: 36.17 % | |EDV(Teich): 118.24 ml | |EF(Teich): 65.58 % | |ESV(Teich): 40.69 ml | |IVSd: 0.90 cm | |IVSs: 1.11 cm | |LVIDd: 5.00 cm | |LVIDs: 3.19 cm | |LVPWd: 0.85 cm | |LVPWs: 1.22 cm | |SV(Teich): 77.54 ml | |D-E Excursion: 2.66 cm | |E-F Ware: 0.20 m/s | |HR: 53.21 BPM | |AV maxP.38 mmHg | |AV meanP.94 mmHg | |AV Vmax: 1.26 m/s | |AV Vmean: 0.77 m/s | |AV VTI: 25.84 cm | |SAMIA Vmax: 3.20 cm2 | |SAMIA (VTI): 2.87 cm2 | |LVCI Dopp: 1.78 l/minm2 | |LVCO Dopp: 4.15 l/min | |HR: 55.96 BPM | |LVOT maxP.28 mmHg | |LVOT meanP.82 mmHg | |LVSI Dopp: 31.85 ml/m2 | |LVSV Dopp: 74.21 ml | |LVOT Vmax: 1.03 m/s | |LVOT Vmean: 0.61 m/s | |LVOT VTI: 18.95 cm | |MV A Mansoor: 0.37 m/s | |MV DecT: 199.93 ms | |MV E Mansoor: 0.88 m/s | |MV E/A Ratio: 2.39 | |MV PHT: 59.05 ms | |MVA By PHT: 3.72 cm2 | |MV A Dur: 121.99 ms | |Septal e': 0.13 m/s | |Septal E/e': 6.36 | |Lateral e': 0.17 m/s | |Lateral E/e': 4.94 | |P Vein A: 0.21 m/s | |P Vein A Dur: 88.72 ms | |P Vein D: 0.77 m/s | |P Vein S/D Ratio: 0.91 | |P Vein S: 0.70 m/s | |HR: 53.74 BPM | |PV maxP.77 mmHg | |PV meanP.09 mmHg | |PV Vmax: 0.83 m/s | |PV Vmean: 0.46 m/s | |PV VTI: 16.39 cm | |RAP: 5 mmHg | |RVSP: 23.17 mmHg | |TR maxP.17 mmHg | |TR Vmax: 2.13 m/s | |TV A Mansoor: 0.25 m/s | |TV Dec Ware: 2.14 m/s2 | |TV Dec Time: 252.95 ms | |TV E Mansoor: 0.54 m/s | |TV E/A Ratio: 2.09 | | | |Resident Intern: CM | |Authenticated by: Kirk Berrios MD | |Report Date/Time: 10-24-2010 11:42:19 | + + XR Chest 2 Vws (10/23/2010 6:30 PM PDT) + + | Specimen | + + | | + + + + + | Narrative | Performed At | + + + | [facility] [id number] Ph: | | | Patient Name: DURAN KENY Bowman Date of : | | | 1990 Medical Record: [id number] Account: [id number] | | | Exam Date/Time: 10/23/2010 17:43 Ordering | | | Physician: TANIA CHUA Order Detail: [id number] Exam Description: | | | XR CHEST 2 VIEW | | | KENY | | | Colby SPEAR XR CHEST 2 VIEW 10/23/2010 5:43 PM HISTORY: 20 years. | | | Male. Chest pain TECHNIQUE: PA and lateral views of the chest | | | are obtained using dual energy technique. COMPARISON: . | | | FINDINGS: The heart is normal in size. The lungs are | | | normally expanded. The pulmonary vascular pattern is normal. No | | | acute airspace disease, parenchymal nodule, mass, pleural effusion or | | | pneumothorax is noted. No hilar adenopathy is seen. The osseous | | | structures are intact. IMPRESSION: 1. No acute airspace | | | disease. | | | 11:30 PM | | + + + + + | Procedure Note | + + | Jay, Rad Conversion - 03/25/2019 3:07 PM PDT | | [facility] | | [facility] [address] | | | | | | Patient Name: KENY SPEAR | | Date of : 1990 | | Medical Record: [id number] | | Account: [id number] | | | | | | Exam Date/Time: 10/23/2010 17:43 | | Ordering Physician: TANIA CHUA | | Order Detail: [id number] | | Exam Description: XR CHEST 2 VIEW | | | | KENY Bowman SPEAR | | XR CHEST 2 VIEW | | 10/23/2010 5:43 PM | | | | HISTORY: | | 20 years. Male. Chest pain | | | | TECHNIQUE: | | PA and lateral views of the chest are obtained using dual energy technique. | | | | COMPARISON: | | . | | | | FINDINGS: | | The heart is normal in size. The lungs are normally expanded. The | | pulmonary vascular pattern is normal. No acute airspace disease, | | parenchymal nodule, mass, pleural effusion or pneumothorax is noted. No | | hilar adenopathy is seen. The osseous structures are intact. | | | | IMPRESSION: | | 1. No acute airspace disease. | | | | | + + documented in this encounter Visit Diagnoses + + | Diagnosis | + + | Other chest pain | + + | Syncope and collapse | + + | Cannabis abuse, unspecified | + + | Tobacco use disorder | + + | Family history of ischemic heart disease | + + | Chest pain, unspecified | + + documented in this encounter"
--- OUTSIDE RECORDS SUMMARY | ~2019-12-12 | XMS | Clinical Summary ---
Demographics + + + | Address | [address] | | | [place] [address] | + + + | Home Phone | | + + + | Preferred Language | Unknown | + + + | Marital Status | | + + + | Congregation Affiliation | Unknown | + + + | Race | White | + + + | Ethnic Group | Not or | + + + Author + + + | Author | [facility] | + + + | Organization | [facility] | + + + | Address | Unknown | + + + | Phone | Unavailable | + + + Support + + +---------+ + | Name | Relationship | Address | Phone | + + +---------+ + | Jocelyn Spear | ECON | Unknown | | + + +---------+ + Care Team Providers + +------+ + | Care Crepe Laminator Operator Name | Role | Phone | + +------+ + | No Pcp Per Patient | PCP | Unavailable | + +------+ + Source Comments [facility] is fully live on both [facility] and [facility] Allergies + + + + + + | Active Allergy | Reactions | Severity | Noted | Comments | | | | | Date | | + + + + + + | Amoxicillin | Anaphylaxis | High | 06/29/20 | | | | | | 18 | | + + + + + + | Erythromycin | Hives | High | 09/12/19 | | | | | | 16 | | + + + + + + | Penicillins | Anaphylaxis | High | 06/29/20 | | | | | | 18 | | + + + + + + | Venom-Honey Bee | Anaphylaxis | High | 03/07/20 | [...] + + + +---------+------+------+-------+ | | Take 5-325 mg by | | 0 | 07/02 | | Activ | | oxyCODONE-acetaminop | mouth as needed. | | | 08/21 | | e | | hen 5-325 mg oral | | | | 18 | | | | tablet | | | | | | | + + + +---------+------+------+-------+ Active Problems Not on file Family History + + +------+ + | Medical History | Relation | Name | Comments | + + +------+ + | No Known Problems | Father | | | + + +------+ + | No Known Problems | Mother | | | + + +------+ + + +------+--------+ + | Relation | Name | Status | Comments | + +------+--------+ + | Father | | | | + +------+--------+ + | Mother | | | | + +------+--------+ + Social History + + + +--------+ + | Tobacco Use | Types | Packs/Day | Years | Date | | | | | Used | | + + + +--------+ + | Current Every Day | Cigarettes | 1 | | Started: 07/19/2004 | | Smoker | | | | | + + + +--------+ + + +---+---+---+ | Smokeless Tobacco: | | | | | Never Used | | | | + +---+---+---+ + + | Tobacco Cessation: Ready to Quit: Yes | + + + + +---------+ + | Alcohol Use | Drinks/Week | oz/Week | Comments | + + +---------+ + | Yes | | | 1 a month | + + +---------+ + + + + | Sex Assigned at [...] + + Last Filed Vital Signs + +---------+ + + | Vital Sign | Reading | Time Taken | Comments | + +---------+ + + | Blood Pressure | 121/82 | 07/19/2018 8:34 AM | | | | | PST | | + +---------+ + + | Pulse | 88 | 07/19/2018 8:34 AM | | | | | PST | | + +---------+ + + | Temperature | - | - | | + +---------+ + + | Respiratory Rate | - | - | | + +---------+ + + | Oxygen Saturation | - | - | | + +---------+ + + | Inhaled Oxygen | - | - | | | Concentration | | | | + +---------+ + + | Weight | - | - | | + +---------+ + + | Height | - | - | | + +---------+ + + | Body Mass Index | - | - | | + +---------+ + + Plan of Treatment + + + + + | Health Maintenance | Due Date | Last Done | Comments | + + + + + | Pneumococcal | | | | | vaccination (1 of 1 | 6 | | | | - PPSV23) | | | | + + + + + | Influenza (Flu) | | 06/05/2016, 05/27/2013, | | | vaccination (#1) | 9 | 04/07/2011 | | + + + + + Results Not on filefrom Last 3 Months Insurance + +--------+ +--------+-------+---------+--------+ | Payer | Benefi | Subscriber | Effect | Phone | Address | Type | | | t Plan | ID | josé | | | | | | / | | Dates | | | | | | Group | | | | | | + +--------+ +--------+-------+---------+--------+ | ENERGY SALES CONSULTANT MEDICAID | ENERGY SALES CONSULTANT | xxxxxxxx | 4/23/2 | | | Medica | | | [place] | | 018-Pr | | | id | | | [place] | | esent | | | | + +--------+ +--------+-------+---------+--------+ + +--------+ +--------+ + + | Guarantor Name | Accoun | Relation to | Date | Phone | Billing Address | | | t Type | Patient | of | | | | | | | | | | + +--------+ +--------+ + + | Trevin Spear A | Person | Self [birth year] | [address] | | | al/Fam | | 1990 | [phone] | | | [place] | | | [address] (Home) | [place] [address] | + +--------+ +--------+ + +"
--- OUTSIDE RECORDS SUMMARY | ~2019-12-12 | XMS | Encounter Summary ---
Demographics + + + | Address | [address] | | | [place] [address] | + + + | Home Phone | | + + + | Preferred Language | Unknown | + + + | Marital Status | | + + + | Sabianism Affiliation | Unknown | + + + | Race | White | + + + | Ethnic Group | Not or | + + + Author + + + | Author | [facility] | + + + | Organization | [facility] | + + + | Address | Unknown | + + + | Phone | Unavailable | + + + Support + + +---------+ + | Name | Relationship | Address | Phone | + + +---------+ + | Jocelyn Spear | ECON | Unknown | | + + +---------+ + Care Team Providers + +------+ + | Care Travel Manager Name | Role | Phone | + +------+ + | No Pcp Per Patient | PCP | Unavailable | + +------+ + Encounter Details +--------+ + + + + | Date | Type | Department | Care Team | Description | +--------+ + + + + | 10/16/ | Outside | UNKNOWN DEPARTMENT | Other, Faculty | | | 2010 | Records | [address] | [phone] | | | | | [address] | | | | | | [place], [place] | | | | | | [address] | | | +--------+ + + + [...] | + +--------+ + + + | OUTSIDE RADIOLOGY - | | 10/16/2010 | | Results for this | | CT | | 12:00 AM | | procedure are in the | | | | PDT | | results section. | + +--------+ + + + documented in this encounter Results OUTSIDE RADIOLOGY - CT (10/16/2010 12:00 AM PDT) + + + | Narrative | Performed At | + + + | | | + + + documented in this encounter Visit Diagnoses Not on filedocumented in this encounter"
--- OUTSIDE RECORDS SUMMARY | ~2019-12-12 | XMS | Encounter Summary ---
Demographics + + + | Address | [address] | | | [place] [address] | + + + | Home Phone | | + + + | Preferred Language | Unknown | + + + | Marital Status | | + + + | Catholic Affiliation | Unknown | + + + | Race | White | + + + | Ethnic Group | Not or | + + + Author + + + | Author | [facility] | + + + | Organization | [facility] | + + + | Address | Unknown | + + + | Phone | Unavailable | + + + Support + + +---------+ + | Name | Relationship | Address | Phone | + + +---------+ + | Jocelyn Spear | ECON | Unknown | | + + +---------+ + Care Team Providers + +------+ + | Care Sleep Scientist Name | Role | Phone | + +------+ + | No Pcp Per Patient | PCP | Unavailable | + +------+ + Encounter Details +--------+ + + + + | Date | Type | Department | Care Team | Description | +--------+ + + + + | 07/20/ | MyChart | Neurology at | [facility] | RE: Results | | 2018 | Encounter | [facility] & | MD Jerrica [address] | | | | | Healing [address] | [address] | | | | | [place] Mailcode: CH8C | [place], [place] | | | | | [facility] | [address] | | | | | and Healing, | [phone] | | | | | | | | | | | Floor [place], [place] | | | | | | [address] | | | | | | [phone] | | | +--------+ + + + + Social History + + + +--------+ [...] | | | + +---+---+---+ + + +---------+ + | Alcohol Use [...]
--- OUTSIDE RECORDS SUMMARY | ~2019-12-12 | XMS | Encounter Summary ---
Demographics + + + | Address | [address] | | | [place] [address] | + + + | Home Phone | | + + + | Preferred Language | Unknown | + + + | Marital Status | | + + + | Latter Day Affiliation | Unknown | + + + | Race | White | + + + | Ethnic Group | Not or | + + + Author + + + | Author | [facility] | + + + | Organization | [facility] | + + + | Address | Unknown | + + + | Phone | Unavailable | + + + Support + + +---------+ + | Name | Relationship | Address | Phone | + + +---------+ + | Jocelyn Spear | ECON | Unknown | | + + +---------+ + Care Team Providers + +------+ + | Care Mineral Resources Inspector Name | Role | Phone | + +------+ + | No Pcp Per Patient | PCP | Unavailable | + +------+ + Reason for Visit + + + | Reason | Comments | + + + | Test Results | EEG | + + + Encounter Details +--------+ + + + + | Date | Type | Department | Care Team | Description | +--------+ + + + + | 07/27/ | MyChart | Neurology at | [facility] | Test results | | 2018 | Encounter | [facility] & | MD Jerrica [address] | | | | | Healing [address] | [address] | | | | | [place] Mailcode: CH8C | [place], [place] | | | | | [facility] | [address] | | | | | and [place], | [phone] | | | | | [facility] | | | | | | Floor [place], [place] | | | | | | [address] | | | | | | [phone] | | | +--------+ + + + [...]
--- OUTSIDE RECORDS SUMMARY | ~2019-12-12 | XMS | Encounter Summary ---
Demographics + + + | Address | [address] | | | [place] [address] | + + + | Home Phone | | + + + | Preferred Language | Unknown | + + + | Marital Status | | + + + | Scientologist Affiliation | Unknown | + + + | Race | Unknown | + + + | Ethnic Group | Unknown | + + + Author + + + | Author | [facility] | | | and [place] | + + + | Organization | [facility] | | | and [place] | + + + | Address | Unknown | + + + | Phone | Unavailable | + + + Support + + + + + | Name | Relationship | Address | Phone | + + + + + | Jocelyn Spear | ECON | [address] | | | | | [place], | | | | | [place] [address] | | + + + + + Care Team Providers + +------+ + | Care Bone Density Technician Name | Role | Phone | + +------+ + PCP | Unavailable | + +------+ + Encounter Details +--------+ + + + + | Date | Type | Department | Care Team | Description | +--------+ + + + + | 06/21/ | Emergency | [facility] | Kesha Hoyt, | Lumbar pain; | | 2018 | | [facility] | MD [address] | Degenerative disc | | | | EMERGENCY CENTER | [place] [address] | disease, lumbar; | | | | [address] | [phone] | Seizure-like | | | | [place], [place] | | activity ([facility]) | | | | [address] | | | | | | [phone] | | | +--------+ + + + [...] tablets by | 20 | 0 | // | | | HYDROcodone-acetamin | mouth every [...] | + +--------+ + + + | MRI LUMBAR SPINE WO | Routin | 06/21/2018 | | Results for this | | CONTRAST | e | 10:42 PM | | procedure are in the | | | | PST | | results section. | + +--------+ + + + | URINALYSIS, REFLEX | Routin | 06/21/2018 | | Results for this | | MICROSCOPIC AND/OR | e | 10:24 PM | | procedure are in the | | CULTURE | | PST | | results section. | + +--------+ + + + | EXTERNAL LAB: CBC | Routin | 06/21/2018 | | Results for this | | | e | 9:07 PM | | procedure are in the | | | | PST | | results section. | + +--------+ + + + | SEDIMENTATION RATE, | Routin | 06/21/2018 | | Results for this | | AUTOMATED | e | 9:07 PM | | procedure are in the | | | | PST | | results section. | + +--------+ + + + | C-REACTIVE PROTEIN | Routin | 06/21/2018 | | Results for this | | | e | 9:07 PM | | procedure are in the | | | | PST | | results section. | + +--------+ + + + | COMPREHENSIVE | Routin | 06/21/2018 | | Results for this | | METABOLIC PANEL | e | 9:07 PM | | procedure are in the | | | | PST | | results section. | + +--------+ + + + documented in this encounter Results MRI Lumbar Spine wo Contrast (06/21/2018 10:42 PM PST) + + | Specimen | + + | | + + + + | Addenda | + + | Addendum by Gray Hardy MD on 07/15/2018 4:13 PM Correction to | | history: Lumbar spine pain for one month. | + + + + + | Impressions | Performed At | + + + | 1. Disc abnormality at L5-S1, as above, may affect the left S1 | | | nerve root in its lateral recess. 2. Multilevel degenerative | | | disc disease and facet arthropathy/ligamentum flavum hypertrophy, as | | | above, without spinal canal stenosis. | | + + + + + + | Narrative | Performed At | + + + | 06/21/2018 10:42 PM HISTORY: Lumbar spine for one month. | | | TECHNIQUE: Imaging was performed on a 1.5 Sumi MRI unit. Standard | | | multiplanar sequences were obtained without contrast. COMPARISON: | | | Lumbar spine radiographs June 18, 2018. FINDINGS: The spinal | | | alignment is intact. No fracture or worrisome bone lesion is seen. | | | Mild disc height loss is noted at L5-S1 with associated disc | | | desiccation. The conus medullaris terminates at the L2 level, | | | appearing normal. The following findings are noted at these | | | levels: L1-L2: Other than mild bilateral facet arthropathy and | | | ligamentum flavum hypertrophy, normal. L2-L3: Minimal broad-based | | | disc bulge without significant spinal or neural foraminal stenosis. | | | Mild bilateral facet arthropathy and ligamentum flavum hypertrophy. | | | L3-L4: Minimal broad-based disc bulge inducing minimal bilateral | | | neural foraminal narrowing. Mild bilateral facet arthropathy and | | | ligamentum flavum hypertrophy without significant spinal canal | | | stenosis. L4-L5: Minimal broad-based disc bulge inducing minimal | | | bilateral neural foraminal narrowing. Mild to moderate bilateral facet | | | arthropathy and ligamentum flavum hypertrophy without significant | | | spinal canal stenosis. L5-S1: Mild to moderate broad-based disc | | | bulge, eccentric to the left. Left eccentric component contacts the | | | left S1 nerve root in its lateral recess, slightly posteriorly | | | displacing the structure. Patent spinal canal. Mild bilateral neural | | | foraminal narrowing. Mild bilateral facet arthropathy. The | | | abdominal aorta and visualized portion of the kidneys are normal. | | + + + + + | Procedure Note | + + | Jay, Rad Conversion - 03/15/2019 5:46 AM PDT 06/21/2018 10:42 PM HISTORY:Lumbar | | spine for one month. TECHNIQUE:Imaging was performed on a 1.5 Sumi MRI unit. Standard | | multiplanar sequences were obtained without contrast. COMPARISON:Lumbar spine | | radiographs June 18, 2018. FINDINGS:The spinal alignment is intact. No fracture or | | worrisome bone lesion is seen. Mild disc height loss is noted at L5-S1 with associated | | disc desiccation. The conus medullaris terminates at the L2 level, appearing normal. The | | following findings are noted at these levels: L1-L2: Other than mild bilateral facet | | arthropathy and ligamentum flavum hypertrophy, normal. L2-L3: Minimal broad-based disc | | bulge without significant spinal or neural foraminal stenosis. Mild bilateral facet | | arthropathy and ligamentum flavum hypertrophy. L3-L4: Minimal broad-based disc bulge | | inducing minimal bilateral neural foraminal narrowing. Mild bilateral facet arthropathy | | and ligamentum flavum hypertrophy without significant spinal canal stenosis. L4-L5: | | Minimal broad-based disc bulge inducing minimal bilateral neural foraminal narrowing. | | Mild to moderate bilateral facet arthropathy and ligamentum flavum hypertrophy without | | significant spinal canal stenosis. L5-S1: Mild to moderate broad-based disc bulge, | | eccentric to the left. Left eccentric component contacts the left S1 nerve root in its | | lateral recess, slightly posteriorly displacing the structure. Patent spinal canal. Mild | | bilateral neural foraminal narrowing. Mild bilateral facet arthropathy. The abdominal | | aorta and visualized portion of the kidneys are normal. IMPRESSION: 1. Disc | | abnormality at L5-S1, as above, may affect the left S1 nerve root in its lateral recess. | | 2. Multilevel degenerative disc disease and facet arthropathy/ligamentum flavum | | hypertrophy, as above, without spinal canal stenosis. | | | |L5-S1: Mild to moderate broad-based disc bulge, eccentric to the left. Left eccentric compo nent contacts the left S1 nerve root in its lateral recess, slightly posteriorly displacing the structure. Patent spinal canal. Mild bilateral neural foraminal | |narrowing. Mild bilateral facet arthropathy. | | | |The abdominal aorta and visualized portion of the kidneys are normal. | | | |IMPRESSION: | | | |1. Disc abnormality at L5-S1, as above, may affect the left S1 nerve root in its lateral recess. | | | |2. Multilevel degenerative disc disease and facet arthropathy/ligamentum flavum hypertroph y, as above, without spinal canal stenosis. | | | | | + + Urinalysis, Reflex Microscopic and/or Culture (06/21/2018 10:24 PM PST) + + + + + + | Component | Value | Ref Range | Performed | Pathologist | | | | | At | Signature | + + + + + + | Color | YELLOW | | EXTERNAL | | | | | | LAB | | + + + + + + | Clarity | CLEAR | | EXTERNAL | | | | | | LAB | | + + + + + + | Specific | 1.009 | 1.002 - 1.030 | EXTERNAL | | | [place], | | | LAB | | | Urine | | | | | + + + + + + | Leukocyte | NEGATIVE | | EXTERNAL | | | Esterase, | | | LAB | | | Urine | | | | | + + + + + + | Nitrite, | NEGATIVE | | EXTERNAL | | | Urine | | | LAB | | + + + + + + | Urobilinoge | NORMAL | mg/dL | EXTERNAL | | | n, Urine | | | LAB | | + + + + + + | Protein, | NEGATIVE | mg/dL | EXTERNAL | | | Urine | | | LAB | | + + + + + + | pH, Urine | 6.0 | 5.0 - 8.0 | EXTERNAL | | | | | | LAB | | + + + + + + | Blood, | SMALL (A) | | EXTERNAL | | | Urine | | | LAB | | + + + + + + | Ketones | NEGATIVE | mg/dL | EXTERNAL | | | | | | LAB | | + + + + + + | Bilirubin, | NEGATIVE | | EXTERNAL | | | Urine | | | LAB | | + + + + + + | Glucose, | NEGATIVE | mg/dL | EXTERNAL | | | Urine | | | LAB | | + + + + + + | WBC, UA | NONE SEEN | 0 - 5 /hpf | EXTERNAL | | | | | | LAB | | + + + + + + | RBC, UA | 0-2 | 0 - 2 /hpf | EXTERNAL | | | | | | LAB | | + + + + + + | Bacteria, | NONE SEEN | | EXTERNAL | | | UA | | | LAB | | + + + + + + | Epithelial | NONE SEENComment: | /lpf | EXTERNAL | | | Cells | Testing performed at | | LAB | | | | [facility] | | | | | | [facility];[place] [address] | | | | + + + + + + + + | Specimen | + + | | + + + +---------+ + + | Performing | Address | City/State/Zipcode | Phone Number | | Organization | | | | + +---------+ + + | EXTERNAL LAB | | | | + +---------+ + + Sedimentation rate, automated (06/21/2018 9:07 PM PST) + + + + + + | Component | Value | Ref Range | Performed | Pathologist | | | | | At | Signature | + + + + + + | Sed Rate | 8Comment: Testing | 0 - 15 mm/Hr | EXTERNAL | | | | performed at [facility];[address] | | LAB | | | | [address];[place], [place] | | | | | | [address] | | | | + + + [...] + +---------+ + + External Lab: CBC (06/21/2018 9:07 PM PST) + + + + + + | Component | Value | Ref Range | Performed | Pathologist | | | | | At | Signature | + + + + + + | WBC | 16.85 (H) | 3.80 - 11.00 | EXTERNAL | | | | | K/uL | LAB | | + + + + + + | Red Blood | 5.09 | 4.20 - 5.70 | EXTERNAL | | | Cells | | M/uL | LAB | | | Counted | | | | | + + + + + + | Hemoglobin | 15.0 | 13.2 - 17.0 | EXTERNAL | | | | | g/dL | LAB | | + + + + + + | Hematocrit, | 43.8 | 39.0 - 50.0 % | EXTERNAL | | | POC | | | LAB | | + + + + + + | MCV | 86.0 | 80.0 - 100.0 fl | EXTERNAL | | | | | | LAB | | + + + + + + | MCH | 29.5 | 27.0 - 34.0 pg | EXTERNAL | | | | | | LAB | | + + + + + + | MCHC | 34.3 | 32.0 - 35.5 | EXTERNAL | | | | | g/dL | LAB | | + + + + + + | RDW-CV | 41.6 | 37 - 53 fl | EXTERNAL | | | | | | LAB | | + + + + + + | Platelet | 335 | 150 - 400 K/uL | EXTERNAL | | | Count | | | LAB | | | Plasma | | | | | + + + + + + | MPV | 8.0 | fl | EXTERNAL | | | | | | LAB | | + + + + + + | Differentia | AUTOMATED | | EXTERNAL | | | l Type | | | LAB | | + + + + + + | % Segmented | 63.45 | % | EXTERNAL | | | | | | LAB | | | Neutrophils | | | | | + + + + + + | % | 26.66 | % | EXTERNAL | | | Lymphocytes | | | LAB | | + + + + + + | % Monocytes | 4.72 | % | EXTERNAL | | | | | | LAB | | + + + + + + | % | 4.26 | % | EXTERNAL | | | Eosinophils | | | LAB | | + + + + + + | % Basophils | 0.91 | % | EXTERNAL | | | | | | LAB | | + + + + + + | Absolute | 10.69 (H) | 1.90 - 7.40 | EXTERNAL | | | Segmented | | K/uL | LAB | | | Neutrophils | | | | | + + + + + + | Absolute | 4.49 (H) | 1.00 - 3.90 | EXTERNAL | | | Lymphocytes | | K/uL | LAB | | + + + + + + | Absolute | 0.80 | 0.00 - 0.80 | EXTERNAL | | | Monocytes | | K/uL | LAB | | + + + + + + | Absolute | 0.72 (H) | 0.00 - 0.50 | EXTERNAL | | | Eosinophils | | K/uL | LAB | | + + + + + + | Absolute | 0.15 (H)Comment: Testing | 0.00 - 0.10 | EXTERNAL | | | Basophils | performed at [facility];[address] | [address] | LAB | | | | [address];[place] | | | | | | [address] | | | | + + + + + + + + | Specimen | + + | Blood specimen | | (specimen) | + + + +---------+ + + | Performing | Address | City/State/Zipcode | Phone Number | | Organization | | | | + +---------+ + + | EXTERNAL LAB | | | | + +---------+ + + C-Reactive Protein (06/21/2018 9:07 PM PST) + + + + + + | Component | Value | Ref Range | Performed | Pathologist | | | | | At | Signature | + + + + + + | CRP | 0.5 (H)Comment: Testing | mg/dL | EXTERNAL | | | | performed at [facility] | | LAB | | | | [address];[place], [place] | | | | | | [address] | | | | + + + + + + + + | Specimen | + + | | + + + +---------+ + + | Performing | Address | City/State/Zipcode | Phone Number | | Organization | | | | + +---------+ + + | EXTERNAL LAB | | | | + +---------+ + + Comprehensive Metabolic Panel (06/21/2018 9:07 PM PST) + + + + + + | Component | Value | Ref Range | Performed | Pathologist | | | | | At | Signature | + + + + + + | Na | 139 | 135 - 145 | EXTERNAL | | | | | mmol/L | LAB | | + + + + + + | K | 3.5Comment: SLT | 3.5 - 4.9 | EXTERNAL | | | | HEMOLYSIS | mmol/L | LAB | | + + + + + + | Cl | 105 | 99 - 109 mmol/L | EXTERNAL | | | | | | LAB | | + + + + + + | CO2 | 27 | 23 - 32 mmol/L | EXTERNAL | | | | | | LAB | | + + + + + + | Anion Gap | 10 | 5 - 20 mmol/L | EXTERNAL | | | | | | LAB | | + + + + + + | Glucose, | 107 (H) | 65 - 99 mg/dL | EXTERNAL | | | Fasting | | | LAB | | + + + + + + | BUN | 9 | 8 - 25 mg/dL | EXTERNAL | | | | | | LAB | | + + + + + + | Creatinine | 0.98 | 0.70 - 1.30 | EXTERNAL | | | | | mg/dL | LAB | | + + + + + + | BUN/Creatin | 10 | | EXTERNAL | | | ine Ratio | | | LAB | | + + + + + + | Calcium | 8.6 | 8.5 - 10.5 | EXTERNAL | | | | | mg/dL | LAB | | + + + + + + | Protein, | 7.2 | 6.3 - 8.2 g/dL | EXTERNAL | | | Total | | | LAB | | + + + + + + | Albumin | 3.6 | 3.6 - 5.0 g/dL | EXTERNAL | | | | | | LAB | | + + + + + + | Globulin | 3.6 | 1.3 - 4.9 g/dL | EXTERNAL [...] + + + + | ALP, | 64 | 35 - 115 U/L | EXTERNAL | | | External | | | LAB | | + + + + + + | AST | 26Comment: SLT HEMOLYSIS | 10 - 45 U/L | EXTERNAL | | | | | | LAB | | + + + + + + | ALT | 45 | 10 - 65 U/L | EXTERNAL [...] | | | | | performed at [facility];[address] | | | | | | [facility];[place], [place] | | | | | | [address] | | | | + + + [...] + | Diagnosis | + + | Lumbar pain Lumbago | + + | Degenerative disc disease, lumbar Degeneration of lumbar or lumbosacral | | intervertebral disc | + + | Seizure-like activity (HCC) Other convulsions | + + documented in this encounter"
--- OUTSIDE RECORDS SUMMARY | ~2019-12-12 | XMS | Encounter Summary ---
Demographics + + + | Address | [address] | | | [place] [address] | + + + | Home Phone | | + + + | Preferred Language | Unknown | + + + | Marital Status | | + + + | Confucianism Affiliation | Unknown | + + + [...] + | Jocelyn Spear | ECON | [address] | | | | | [place], | | | | | [place] [address] | | + + + + + Care Team Providers + +------+ + | Care Fast Food Crew Lead Name | Role | Phone | + [...] low back | | | | [facility] | [place] [address] | pain without | | | | [address] | [phone] | sciatica | | | | [place], [place] | | | | | | [address] | | | | | | [phone] | | | +--------+ + + + [...] EXTERNAL | | | | performed at [facility], [address] | | LAB | | | | [address], | | | | | | [place] [address] | | | | + + + [...] | | | Basophils | performed at [facility], [address] | [address] | LAB | | | | [address], | | | | | | [place] [address] | | | | + + + [...] EXTERNAL | | | | performed at [facility], [address] | | LAB | | | | [address], | | | | | | [place] [address] | | | | + + + [...] | | | | | performed at [facility], [address] | | | | | | [address], | | | | | | [place] [address] | | | | + + + [...]
--- OUTSIDE RECORDS SUMMARY | ~2019-12-12 | XMS | Encounter Summary ---
Demographics + + + | Address | [address] | | | [place] [address] | + + + | Home Phone | | + + + | Preferred Language | Unknown | + + + | Marital Status | | + + + | Advent Affiliation | Unknown | + + + | Race | White | + + + | Ethnic Group | Not or | + + + Author + + + | Author | [facility] | + + + | Organization | [facility] | + + + | Address | Unknown | + + + | Phone | Unavailable | + + + Support + + +---------+ + | Name | Relationship | Address | Phone | + + +---------+ + | Jocelyn Spear | ECON | Unknown | | + + +---------+ + Care Team Providers + +------+ + | Care Director Workforce Management Name | Role | Phone | + +------+ + | No Pcp Per Patient | PCP | Unavailable | + +------+ + Reason for Referral Diagnostic Testing (Routine) +--------+--------+ + + + + | Status | Reason | Specialty | Diagnoses / | Referred By | Referred To | | | | | Procedures | Contact | Contact | +--------+--------+ + + + + | Closed | | Clinical | Diagnoses | Keerthi, | | | | | Neurophysiolo | | Ayesha Becerril, | | | | | gy | Convulsions, | [address] | | | | | | unspecified | [address] | | | | | | convulsion | Tami Isabel | | | | | | type (HCC) | [place], [place] | | | | | | Procedures | [address] | | | | | | EEG ROUTINE | Phone: | | | | | | | [phone] | | | | | | | Fax: | | | | | | | [phone] | | +--------+--------+ + + + + Reason for Visit Diagnostic Testing (Routine) +--------+--------+ + + + + | Status | Reason | Specialty | Diagnoses / | Referred By | Referred To | | | | | Procedures | Contact | Contact | +--------+--------+ + + + + | Closed | | Clinical | Diagnoses | Keerthi, | | | | | Neurophysiolo | | Ayesha Becerril, | | | | | gy | Convulsions, | MD [address] | | | | | | unspecified | [address] | | | | | | convulsion | Tami Isabel | | | | | | type (HCC) | [place], [place] | | | | | | Procedures | [address] | | | | | | EEG ROUTINE | Phone: | | | | | | | [phone] | | | | | | | Fax: | | | | | | | [phone] | | +--------+--------+ + + + + Encounter Details +--------+ + + + + | Date | Type | Department | Care Team | Description | +--------+ + + + + | 07/19/ | Hospital | Neurophysiology | Tech, [facility] | | | 2018 | Encounter | EEG at [facility] [address] | Outpatient [address] | | | | | [address] | [address]on [address] | | | | | [facility] | Road [place], [place] | | | | | [address] | [address] | | | | | [place], [place] | | | | | | [address] | | | | | | [phone] | | | +--------+ + + + [...] + + documented as of this encounter Medications at Time of Discharge + + + +---------+ + + | Medication | Sig | Dispensed | Refills | Start | End Date | | | | | | Date | | + + + +---------+ + + | | Take 5-325 mg by | | 0 | 07/12/20 | | | oxyCODONE-acetaminop | mouth as needed. | | | 18 | | | hen 5-325 mg oral | | | | | | | tablet | | | | | | + + + +---------+ + + documented as of this encounter Plan of Treatment Not on filedocumented as of this encounter Procedures + +--------+ + + + | Procedure Name | Priori | Date/Time | Associated Diagnosis | Comments | | | ty | | | | + +--------+ + + + | EEG ROUTINE | Routin | 07/19/2018 | Convulsions, | Results for this | | | e | | unspecified | procedure are in the | | | | | convulsion type | results section. | | | | | (HCC) | | + +--------+ + + + documented in this encounter Results EEG ROUTINE (07/19/2018) + + + | Narrative | Performed At | + + + | Patient Name: Trevin Spear Date of : 1990 Medical | [facility] - | | Record Number: [id number] Date of Test: 07/19/2018 Place of | [facility], | | Service: [facility] [phone] [facility] Department: EEG [facility] | POINT OF CARE | | [phone] ROUTINE EEG Reason for Exam: Evaluate for seizure | TESTS | | activity. History: 28 year old male with history of childhood | | | seizures, and current events concerning for possible seizures. | | | Current Outpatient Prescriptions: oxyCODONE-acetaminophen 5-325 mg | | | oral tablet, Take 5-325 mg by mouth as needed. Methods: This | | | study was a Routine EEG with a duration of 28 minutes. The recording | | | was performed with routine electrodes applied according to the 10-20 | | | electrode placement system. Video, EKG, and EOG monitoring were | | | utilized. The recording was obtained on a digital system. EEG computer | | | review was utilized. Automated digital spike and seizure detection | | | analysis was used, along with patient-activated alarms and nursing | | | observations. Technologist's Note: No skull defect or scalp edema | | | were present. EEG Description: Background: The record was | | | obtained in awake, drowsy and sleep states. No sedation was used. The | | | posterior awake dominant background activity was a continuous, | | | reactive rhythm of (10 Hz, 10 uV). This was symmetric and well | | | modulated, and attenuated with eye opening. The awake background | | | consisted of a generally low amplitude, organized mixture of primarily | | | alpha frequencies with overriding symmetric diffuse frontocentral | | | beta activity arranged in a normal anterior to posterior gradient. | | | As the patient grew drowsy, a drop out of the background rhythm | | | occurred with vertex sharp waves and sleep spindles appearing | | | symmetrically over the central region. Stage N2 sleep was evident. | | | Sleep patterns were symmetrical. K-complexes, vertex waves, and sleep | | | spindles were noted in deeper stages of sleep. Interictal | | | Findings: Abnormal slow wave activity: None Epileptiform | | | activity: None Ictal Activity: No seizures were observed. | | | Clinical Events: None Other variants: None Activation: a) | | | HV: Hyperventilation was performed for 3 minutes with fair effort | | | that was noncontributory. b) IPS: During IPS at 1, 3, 6, 9, 12, 15, | | | 18, 21, 24, 27, 30 Hz, symmetric bilateral driving of the occipital | | | rhythms appeared. Extra leads: Single EKG lead showed a normal | | | sinus rhythm. IMPRESSION This EEG is within normal limits for | | | the awake, drowsy, and sleep states. No abnormal slowing or | | | epileptiform activity is seen. Austin Lynn M.D. Electronically | | | signed on 07/21/2018 at 9:56 AM Austin Lynn MD. Suggested CPT: | | | 97106 - EEG Routine Awake & Asleep Suggested Dx: R56.9 Unspecified | | | convulsions | | + + + + + + + + | Performing | Address | City/State/Zipcode | Phone Number | | Organization | | | | + + + + + | [facility] | [address] | [place], [place] | | | [facility] | [address] | [address] | | | TESTS | | | | + + + + + documented in this encounter Visit Diagnoses + + | Diagnosis | + + | Convulsions, unspecified convulsion type (HCC) | + + documented in this encounter"
--- OUTSIDE RECORDS SUMMARY | ~2019-12-12 | XMS | Encounter Summary ---
Demographics + + + | Address | [address] | | | [place] [address] | + + + | Home Phone | | + + + | Preferred Language | Unknown | + + + | Marital Status | | + + + | Yazidism Affiliation | Unknown | + + + [...] | + + + + + | Jcoelyn Spear | ECON | [address] | | | | | [place], | | | | | [place] [address] | | + + + + + Care Team Providers + +------+ + | Care Retail Event Assistant Name | Role | Phone | + +------+ + PCP | Unavailable | + +------+ + Encounter Details +--------+ + + + + | Date | Type | Department | Care Team | Description | +--------+ + + + + | 08/06/ | Emergency | [facility] | Tae VelozDO | Rib contusion, left, | | 2017 | | [facility] | [address] [facility] | initial encounter; | | | | [facility] | [address], [place] | Vomiting, | | | | [address] | [address] | intractability of | | | | [place] | [phone] | vomiting not | | | | [address] | | specified, presence | | | | [phone] | | of nausea not | | | | | | specified, | | | | | | unspecified vomiting | | | | | | type; Hand injury, | | | | | | right, initial | | | | | | encounter | +--------+ + + + + Social [...] + + + | Blood Pressure | 116/72 | 03/07/2017 1:09 PM | | | | | PDT | | + + + + + | Pulse | 59 | 03/07/2017 1:09 PM | | | | | PDT | | + + + + + | Temperature | 36.6 C (97.8 F) | 03/07/2017 1:09 PM | | | | | PDT | | + + + + + | Respiratory Rate | 16 | 03/07/2017 1:09 PM | | | | | PDT | | + + + + + | Oxygen Saturation | - | - | | + + + + + | Inhaled Oxygen | - | - | | | Concentration | | | | + + + + + | Weight | 92.9 kg (204 lb 13 | 03/07/2017 1:09 PM | | | | oz) | PDT | | + + + + + | Height | 188 cm (6' 2") | 03/07/2017 1:09 PM | | | | | PDT | | + + + + + | Body Mass Index | 26.3 | 03/07/2017 1:09 PM | | | | | PDT | | + + + + + documented in this encounter Plan of Treatment Not on filedocumented as of this encounter Procedures + +--------+ + + + | Procedure Name | Priori | Date/Time | Associated Diagnosis | Comments | | | ty | | | | + +--------+ + + + | CT CHEST ABDOMEN W | Routin | 03/07/2017 | | Results for this | | CONTRAST | e | 12:06 PM | | procedure are in the | | | | PDT | | results section. | + +--------+ + + + | URINALYSIS, REFLEX | Routin | 03/07/2017 | | Results for this | | MICROSCOPIC AND/OR | e | 11:45 AM | | procedure are in the | | CULTURE | | PDT | | results section. | + +--------+ + + + | URINALYSIS, | Routin | 03/07/2017 | | Results for this | | MICROSCOPIC ONLY | e | 11:45 AM | | procedure are in the | | | | PDT | | results section. | + +--------+ + + + | XR WRIST RIGHT 3 + | Routin | 03/07/2017 | | Results for this | | VW | e | 11:25 AM | | procedure are in the | | | | PDT | | results section. | + +--------+ + + + | XR HAND RIGHT 3 + VW | Routin | 03/07/2017 | | Results for this | | | e | 11:25 AM | | procedure are in the | | | | PDT | | results section. | + +--------+ + + + | EXTERNAL LAB: CBC | Routin | 03/07/2017 | | Results for this | | | e | 11:15 AM | | procedure are in the | | | | PDT | | results section. | + +--------+ + + + | COMPREHENSIVE | Routin | 03/07/2017 | | Results for this | | METABOLIC PANEL | e | 11:15 AM | | procedure are in the | | | | PDT | | results section. | + +--------+ + + + documented in this encounter Results CT Chest Abdomen w Contrast (03/07/2017 12:06 PM PDT) + + | Specimen | + + | | + + + + + | Impressions | Performed At | + + + | 1. No acute traumatic findings within the chest or abdomen. | | | | | + + + + + + | Narrative | Performed At | + + + | KENY SPEAR 1990 CT CHEST ABDOMEN W CONTRAST 03/07/2017 | | | 12:06 PM INDICATION: Left flank injury, fell out of pool and hit | | | left side COMPARISON: None TECHNIQUE: CT scan of the chest and | | | abdomen with IV contrast. 5 mm thick helically acquired axial images | | | are obtained of the chest and abdomen following IV administration of | | | contrast. Coronal reconstructed images are performed by the CT | | | technologist. Dose reduction techniques were used including | | | automated exposure control, iterative reconstruction technique, and/or | | | automated adjustable mAs based on patient size. Oral contrast: | | | Redicat 100 mL Isovue-300 FINDINGS: Chest: No bulky axillary, | | | mediastinal, or hilar lymph nodes. Heart is normal in size. No | | | pericardial effusion. Thoracic aorta maintains a normal caliber. | | | Minimal subsegmental atelectasis within the lung bases dependently. | | | No significant pleural effusion. No acute osseous abnormalities. | | | CT abdomen/pelvis: No focal hepatic or splenic lesions. | | | Gallbladder is unremarkable. Pancreas and adrenal glands are without | | | acute finding. Kidneys enhance symmetrically and are without focal | | | defect or hydronephrosis. Abdominal aorta is within normal limits | | | for caliber. The visualized bowel is without evidence of abnormal | | | thickening or obstruction. No free intraperitoneal air or ascites | | | is demonstrated. No acute osseous abnormalities. | | + + + + + | Procedure Note | + + | Giuliano Thompson Conversion - 03/16/2019 1:30 AM WENDIE Bowman [facility]1990CT CHEST ABDOMEN | | W CONTRAST03/07/2017 12:06 PM INDICATION: Left flank injury, fell out of pool and hit left | | side COMPARISON: None TECHNIQUE: CT scan of the chest and abdomen with IV contrast. 5 | | mm thick helically acquired axial images are obtained of the chest and abdomen following | | IV administration of contrast. Coronal reconstructed images are performed by the CT | | technologist. Dose reduction techniques were used including automated exposure control, | | iterative reconstruction technique, and/or automated adjustable mAs based on patient | | size.Oral contrast: [id number] mL Isovue-300 FINDINGS: Chest: No bulky axillary, | | mediastinal, or hilar lymph nodes. Heart is normal in size. No pericardial effusion. | | Thoracic aorta maintains a normal caliber. Minimal subsegmental atelectasis within the | | lung bases dependently. No significant pleural effusion. No acute osseous abnormalities. | | CT abdomen/pelvis: No focal hepatic or splenic lesions. Gallbladder is unremarkable. | | Pancreas and adrenal glands are without acute finding. Kidneys enhance symmetrically and | | are without focal defect or hydronephrosis. Abdominal aorta is within normal limits for | | caliber. The visualized bowel is without evidence of abnormal thickening or | | obstruction. No free intraperitoneal air or ascites is demonstrated. No acute osseous | | abnormalities. IMPRESSION: 1. No acute traumatic findings within the chest or abdomen. | | | |Heart is normal in size. No pericardial effusion. Thoracic aorta maintains a normal caliber . | | | |Minimal subsegmental atelectasis within the lung bases dependently. | | | |No significant pleural effusion. | | | |No acute osseous abnormalities. | | | |CT abdomen/pelvis: No focal hepatic or splenic lesions. Gallbladder is unremarkable. Pancre as and adrenal glands are without acute finding. | | | |Kidneys enhance symmetrically and are without focal defect or hydronephrosis. | | | |Abdominal aorta is within normal limits for caliber. | | | |The visualized bowel is without evidence of abnormal thickening or obstruction. | | | |No free intraperitoneal air or ascites is demonstrated. | | | |No acute osseous abnormalities. | | | |IMPRESSION: | |1. No acute traumatic findings within the chest or abdomen. | | | | | + + Urinalysis, Reflex Microscopic and/or Culture (03/07/2017 11:45 AM PDT) + + + + + + | Component | Value | Ref Range | Performed | Pathologist | | | | | At | Signature | + + + + + + | Color | YELLOW | | EXTERNAL | | | | | | LAB | | + + + + + + | Clarity | TURBID | | EXTERNAL | | | | | | LAB | | + + + + + + | Specific | 1.015 | 1.001 - 1.035 | EXTERNAL | | | [place], | | | LAB | | | [...] + + + + | Urobilinoge | 0.2 | mg/dL | EXTERNAL | | | n, Urine | | | LAB | | + + + + + + | Protein, | NEGATIVE | mg/dL | EXTERNAL | | | Urine | | | LAB | | + + + + + + | pH, Urine | 8.5 (H) | 4.6 - 8.0 | EXTERNAL | | | | | | LAB | | + + + + + + | Blood, | TRACE (A) | | EXTERNAL | | | [...] + + + + | Glucose, | NEGATIVEComment: Testing | mg/dL | EXTERNAL | | | Urine | performed at [facility], [address] | LAB | | | | [address], | | | | | | [place] [address] | | | | + + + + + + + + | Specimen | + + | Urine specimen | | (specimen) | + + + +---------+ + + | Performing | Address | City/State/Zipcode | Phone Number | | Organization | | | | + +---------+ + + | EXTERNAL LAB | | | | + +---------+ + + Urinalysis, Microscopic Only (03/07/2017 11:45 AM PDT) + + + + + + | Component | Value | Ref Range | Performed | Pathologist | | | | | At | Signature | + + + + + + | WBC, UA | 1-5 | 0 - 5 /hpf | EXTERNAL | | | | | | LAB | | + + + + + + | RBC, UA | 6-10 | 0 - 2 /hpf | EXTERNAL | | | | | | LAB | | + + + + + + | Epithelial | 0-2 | /lpf | EXTERNAL | | | Cells | | | LAB | | + + + + + + | Bacteria, | 4+ (A) | | EXTERNAL | | | UA | | | LAB | | + + + + + + | Mucus, | 2+ | | EXTERNAL | | | Urine | | | LAB | | + + + + + + | Crystals | 4+Comment: | /hpf | EXTERNAL | | | | PHOSPHATESTesting | | LAB | | | | performed at [facility], [address] | | | | | | [address], | | | | | | [place] [address] | | | | + + + + + + + + | Specimen | + + | | + + + +---------+ + + | Performing | Address | City/State/Zipcode | Phone Number | | Organization | | | | + +---------+ + + | EXTERNAL LAB | | | | + +---------+ + + XR Wrist Right 3 + Vw (03/07/2017 11:25 AM PDT) + + | Specimen | + + | | + + + + + | Impressions | Performed At | + + + | 1. No acute fracture or dislocation. Minimal lucency noted | | | adjacent to the screws within the base of the fifth metacarpal. | | | Correlate with prior films if available. | | + + + + + + | Narrative | Performed At | + + + | [facility]EN[facility] SPE[facility] 1990 XR WRIST RIGHT 03/07/2017 11:25 AM | | | INDICATION: Pain COMPARISON: X-ray right hand 03/07/2017 | | | TECHNIQUE: Right wrist series, 4 views FINDINGS: Screw fixation | | | involving the hamate and bases of the fourth and fifth metacarpals | | | demonstrated. Minimal lucency noted adjacent to the screws within the | | | base of the fifth metacarpal. Sclerosis of the hamate and prominent | | | osteophyte noted. No acute fracture or dislocation. | | + + + + + | Procedure Note | + + | Giuliano Thompson Conversion - 03/16/2019 1:30 AM WENDIE Bowman [place]1990XR WRIST | | RIGHT03/07/2017 11:25 AM INDICATION: Pain COMPARISON: X-ray right hand 03/07/2017 TECHNIQUE: | | Right wrist series, 4 views FINDINGS: Screw fixation involving the hamate and bases of | | the fourth and fifth metacarpals demonstrated. Minimal lucency noted adjacent to the | | screws within the base of the fifth metacarpal. Sclerosis of the hamate and prominent | | osteophyte noted. No acute fracture or dislocation. IMPRESSION: 1. No acute fracture or | | dislocation. Minimal lucency noted adjacent to the screws within the base of the fifth | | metacarpal. Correlate with prior films if available. | |TECHNIQUE: Right wrist series, 4 views | | | |FINDINGS: Screw fixation involving the hamate and bases of the fourth and fifth metacarpals demonstrated. Minimal lucency noted adjacent to the screws within the base of the fifth met acarpal. Sclerosis of the hamate and prominent osteophyte noted. | | | |No acute fracture or dislocation. | | | |IMPRESSION: | |1. No acute fracture or dislocation. Minimal lucency noted adjacent to the screws within t he base of the fifth metacarpal. Correlate with prior films if available. | | | | | + + XR Hand Right 3 + Vw (03/07/2017 11:25 AM PDT) + + | Specimen | + + | | + + + + + | Impressions | Performed At | + + + | 1. Postoperative changes with intimal lucency noted adjacent to | | | several screws. Correlate with prior imaging if available. 2. No | | | acute fracture or dislocation. | | + + + + + + | Narrative | Performed At | + + + | KENY Bowman SPEAR 1990 XR HAND RIGHT 03/07/2017 11:25 AM | | | INDICATION: Pain, recent fall, prior surgery COMPARISON: None | | | TECHNIQUE: Right hand series, 3 views FINDINGS: There is screw | | | fixation across the fourth and fifth carpometacarpal joints. Minimal | | | lucency noted adjacent to several of the screws. There is sclerosis of | | | the hamate as well as prominent osteophyte formation along the ulnar | | | aspect. No acute fracture or dislocation. | | + + + + + | Procedure Note | + + | Giuliano Thompson Conversion - 03/16/2019 1:30 AM WENDIE Bowamn HAR[place]1990XR HAND | | RIGHT03/07/2017 11:25 AM INDICATION: Pain, recent fall, prior surgery COMPARISON: None | | TECHNIQUE: Right hand series, 3 views FINDINGS: There is screw fixation across the | | fourth and fifth carpometacarpal joints. Minimal lucency noted adjacent to several of | | the screws. There is sclerosis of the hamate as well as prominent osteophyte formation | | along the ulnar aspect. No acute fracture or dislocation. IMPRESSION: 1. Postoperative | | changes with intimal lucency noted adjacent to several screws. Correlate with prior | | imaging if available.2. No acute fracture or dislocation. | |TECHNIQUE: Right hand series, 3 views | | | |FINDINGS: There is screw fixation across the fourth and fifth carpometacarpal joints. Minim al lucency noted adjacent to several of the screws. There is sclerosis of the hamate as well as prominent osteophyte formation along the ulnar aspect. No acute | |fracture or dislocation. | | | |IMPRESSION: | |1. Postoperative changes with intimal lucency noted adjacent to several screws. Correlate with prior imaging if available. | |2. No acute fracture or dislocation. | | | | | + + External Lab: [facility] (03/07/2017 11:15 AM PDT) + + + + + + | Component | Value | Ref Range | Performed | Pathologist | | | | | At | Signature | + + + + + + | WBC | 13.51 (H) | 3.80 - 11.00 | EXTERNAL | | | | | K/uL | LAB | | + + + + + + | Red Blood | 5.36 | 4.20 - 5.70 | EXTERNAL | | | Cells | | M/uL | LAB | | | Counted | | | | | + + + + + + | Hemoglobin | 15.8 | 13.2 - 17.0 | EXTERNAL | | | | | g/dL | LAB | | + + + + + + | Hematocrit, | 46.1 | 39.0 - 50.0 % | EXTERNAL [...] + + + + | RDW-CV | 41.1 | 37 - 53 fl | EXTERNAL | | | | | | LAB | | + + + + + + | Platelet | 325 | 150 - 400 K/uL | EXTERNAL | | | Count | | | LAB | | | Plasma | | | | | + + + + + + | MPV | 8.5 | fl | EXTERNAL | | | | | | LAB | | + + + + + + | Differentia | AUTOMATED | | EXTERNAL | | | l Type | | | LAB | | + + + + + + | % Segmented | 68.56 | % | EXTERNAL | | | | | | LAB | | | Neutrophils | | | | | + + + + + + | % | 21.22 | % | EXTERNAL | | | Lymphocytes | | | LAB | | + + + + + + | % Monocytes | 7.20 | % | EXTERNAL | | | | | | LAB | | + + + + + + | % | 2.33 | % | EXTERNAL | | | Eosinophils | | | LAB | | + + + + + + | % Basophils | 0.69 | % | EXTERNAL | | | | | | LAB | | + + + + + + | Absolute | 9.26 (H) | 1.90 - 7.40 | EXTERNAL | | | Segmented | | K/uL | LAB | | | Neutrophils | | | | | + + + + + + | Absolute | 2.87 | 1.00 - 3.90 | EXTERNAL | | | Lymphocytes | | K/uL | LAB | | + + + + + + | Absolute | 0.97 (H) | 0.00 - 0.80 | EXTERNAL | | | Monocytes | | K/uL | LAB | | + + + + + + | Absolute | 0.32 | 0.00 - 0.50 | EXTERNAL | | | Eosinophils | | K/uL | LAB | | + + + + + + | Absolute | 0.09Comment: Testing | 0.00 - 0.10 | EXTERNAL | | | Basophils | performed at [facility], [address] | LAB | | | | [address], | | | | | | [place] [address] | | | | + + + [...] + +---------+ + + Comprehensive Metabolic Panel (03/07/2017 11:15 AM PDT) + + + + + + | Component | Value | Ref Range | Performed | Pathologist | | | | | At | Signature | + + + + + + | Na | 144 | 135 - 145 | EXTERNAL | | | | | mmol/L | LAB | | + + + + + + | K | 3.9 | 3.5 - 4.9 | EXTERNAL | | | | | mmol/L | LAB | | + + + + + + | Cl | 108 | 99 - 109 mmol/L | EXTERNAL | | | | | | LAB | | + + + + + + | CO2 | 24 | 23 - 32 mmol/L | EXTERNAL | | | | | | LAB | | + + + + + + | Anion Gap | 16 | 5 - 20 mmol/L | EXTERNAL | | | | | | LAB | | + + + + + + | Glucose, | 73 | 65 - 99 mg/dL | EXTERNAL | | | Fasting | | | LAB | | + + + + + + | BUN | 9 | 8 - 25 mg/dL | EXTERNAL | | | | | | LAB | | + + + + + + | Creatinine | 0.75 | 0.70 - 1.30 | EXTERNAL | | | | | mg/dL | LAB | | + + + + + + | BUN/Creatin | 12 | | EXTERNAL | | | ine Ratio | | | LAB | | + + + + + + | Calcium | 8.9 | 8.5 - 10.5 | EXTERNAL | | | | | mg/dL | LAB | | + + + + + + | Protein, | 7.1 | 6.3 - 8.2 g/dL | EXTERNAL | | | Total | | | LAB | | + + + + + + | Albumin | 3.8 | 3.6 - 5.0 g/dL | EXTERNAL | | | | | | LAB | | + + + + + + | Globulin | 3.3 | 1.3 - 4.9 g/dL | EXTERNAL | | | | | | LAB | | + + + + + + | A/G Ratio | 1.2 | 1.0 - 2.4 | EXTERNAL | | | | | | LAB | | + + + + + + | Bilirubin | 0.2 | 0.1 - 1.5 mg/dL | EXTERNAL | | | Total | | | LAB | | + + + + + + | ALP, | 73 | 35 - 115 U/L | EXTERNAL | | | External | | | LAB | | + + + + + + | AST | 14 | 10 - 45 U/L | EXTERNAL | | | | | | LAB | | + + + + + + | ALT | 26 | 10 - 65 U/L | EXTERNAL [...] BY | | | | | | 1.210.Testing performed | | | | | | at [facility], [address] | | | | | [place] | | | | | | [id number] | | | | + + + [...] + | Diagnosis | + + | Rib contusion, left, initial encounter | + + | Vomiting, intractability of vomiting not specified, presence of nausea not specified, | | unspecified vomiting type | + + | Hand injury, right, initial encounter | + + documented in this encounter
--- OUTSIDE RECORDS SUMMARY | ~2019-12-12 | XMS | Encounter Summary ---
Demographics + + + | Address | [address] | | | [place] [address] | + + + | Home Phone | | + + + | Preferred Language | Unknown | + + + | Marital Status | | + + + | Mosque Affiliation | Unknown | + + + [...] + | Jocelyn Spear | ECON | [address] | | | | | [place], | | | | | [place] [address] | | + + + + + Care Team Providers + +------+ + | Care On Site Wastewater Systems Technician Name | Role | Phone | + +------+ + PCP | Unavailable | + +------+ + Encounter Details +--------+ + + + + | Date | Type | Department | Care Team | Description | +--------+ + + + + | 09/12/ | Emergency | [facility] | Ron Lewis MD | RLQ abdominal pain; | | 2016 | | MEDICAL CENTER | [address] | Leukocytosis | | | | EMERGENCY CENTER | [place] [address] | | | | | [address] | [phone] | | | | | [place], [place] | | | | | | [address] | | | | | | [phone] | | | +--------+ + + + [...] + + + | Blood Pressure | 120/71 | 09/12/2015 11:20 PM | | | | | PST | | + + + + + | Pulse | 81 | 09/12/2015 11:20 PM | | | | | PST | | + + + + + | Temperature | 36.4 C (97.6 F) | 09/12/2015 11:20 PM | | | | | PST | | + + + + + | Respiratory Rate | 16 | 09/12/2015 11:20 PM | | | | | PST | | + + + + + | Oxygen Saturation | - | - | | + + + + + | Inhaled Oxygen | - | - | | | Concentration | | | | + + + + + | Weight | 102.5 kg (225 lb | 09/12/2015 11:20 PM | | | | 15.5 oz) | PST | | + + [...] | EXTERNAL LAB: CBC | Routin | 09/12/2015 | | Results for this | | | e | 10:37 PM | | procedure are in the | | | | PST | | results section. | + +--------+ + + + | C-REACTIVE PROTEIN | Routin | 09/12/2015 | | Results for this | | | e | 10:37 PM | | procedure are in the | | | | PST | | results section. | + +--------+ + + + | LIPASE | Routin | 09/12/2015 | | Results for this | | | e | 10:37 PM | | procedure are in the | | | | PST | | results section. | + +--------+ + + + | AMYLASE | Routin | 09/12/2015 | | Results for this | | | e | 10:37 PM | | procedure are in the | | | | PST | | results section. | + +--------+ + + + | BASIC METABOLIC | Routin | 09/12/2015 | | Results for this | | PANEL | e | 10:37 PM | | procedure are in the | | | | PST | | results section. | + +--------+ + + + documented in this encounter Results External Lab: CBC (09/12/2015 10:37 PM PST) + + + + + + | Component | Value | Ref Range | Performed | Pathologist | | | | | At | Signature | + + + + + + | WBC | 15.15 (H)Comment: | 3.80 - 11.00 | EXTERNAL | | | | Testing performed at | K/uL | LAB | | | | [facility];[address];[place] [address] | | | | + + + + + + | Red Blood | 5.42Comment: Testing | 4.20 - 5.70 | EXTERNAL | | | Cells | performed at [facility];[address] | M/uL | LAB | | | Counted | [address];[place] | | | | | | [address] | | | | + + + + + + | Hemoglobin | 16.0Comment: Testing | 13.2 - 17.0 | EXTERNAL | | | | performed at [facility];888 | g/dL | LAB | | | | [address];[place] | | | | | | [address] | | | | + + + + + + | Hematocrit, | 46.4Comment: Testing | 39.0 - 50.0 % | EXTERNAL | | | POC | performed at [facility];[address] | | LAB | | | | [address];[place] | | | | | | [address] | | | | + + + + + + | MCV | 85.6Comment: Testing | 80.0 - 100.0 fl | EXTERNAL | | | | performed at [facility];[address] | | LAB | | | | [address];[place] | | | | | | [address] | | | | + + + + + + | MCH | 29.5Comment: Testing | 27.0 - 34.0 pg | EXTERNAL | | | | performed at [facility];[address] | | LAB | | | | [address];[place] | | | | | | [address] | | | | + + + + + + | MCHC | 34.4Comment: Testing | 32.0 - 35.5 | EXTERNAL | | | | performed at [facility];888 | g/dL | LAB | | | | [address];[place] | | | | | | [address] | | | | + + + + + + | RDW-CV | 40.3Comment: Testing | 37 - 53 fl | EXTERNAL | | | | performed at [facility];[address] | | LAB | | | | [address];[place] | | | | | | [address] | | | | + + + + + + | Platelet | 391Comment: Testing | 150 - 400 K/uL | EXTERNAL | | | Count | performed at [facility];888 | | LAB | | | Plasma | [address];[place] | | | | | | [address] | | | | + + + + + + | MPV | 8.3Comment: Testing | fl | EXTERNAL | | | | performed at [facility];[address] | | LAB | | | | [address];[place] | | | | | | [address] | | | | + + + + + + | Differentia | MANUALComment: Testing | | EXTERNAL | | | l Type | performed at [facility];[address] | | LAB | | | | [address];[place] | | | | | | [address] | | | | + + + + + + | Segmented | 66Comment: Testing | % | EXTERNAL | | | Neutrophils | performed at [facility];[address] | | LAB | | | Manual | [address];[place] | | | | | | [address] | | | | + + + + + + | % Bands | 30Comment: Testing | % | EXTERNAL | | | | performed at [facility];[address] | | LAB | | | | [address];[place] | | | | | | [address] | | | | + + + + + + | Lymphocytes | 4Comment: Testing | % | EXTERNAL | | | Manual | performed at [facility];[address] | | LAB | | | | [address];[place] | | | | | | [address] | | | | + + + + + + | Absolute | 9.99 (H)Comment: Testing | 1.90 - 7.40 | EXTERNAL | | | Neutrophils | performed at [facility];888 | K/uL | LAB | | | | [address];[place] | | | | | | [address] | | | | + + + + + + | Bands | 4.55 (H)Comment: Testing | 0.00 - 0.20 | EXTERNAL | | | Manual | performed at [facility];[address] | K/uL | LAB | | | | [address];[place] | | | | | | [address] | | | | + + + + + + | Absolute | 0.61 (L)Comment: Testing | 1.00 - 3.90 | EXTERNAL | | | Lymphocytes | performed at [facility];[address] | K/uL | LAB | | | | [address];[place] | | | | | | [address] | | | | + + + + + + | Platelet | ADEQUATEComment: Testing | | EXTERNAL | | | Estimate | performed at [facility];[address] | | LAB | | | | [address];[place] | | | | | | [address] | | | | + + + + + + | RBC | RBC AND PLT MORPHOLOGY | | EXTERNAL | | | Morphology | APPEAR NORMALComment: | | LAB | | | | Testing performed at | | | | | | [facility];[address];[place] [address] | | | | + + + + + + + + | Specimen | + + | Blood specimen | | (specimen) | + + + +---------+ + + | Performing | Address | City/State/Zipcode | Phone Number | | Organization | | | | + +---------+ + + | EXTERNAL LAB | | | | + +---------+ + + C-Reactive Protein (09/12/2015 10:37 PM PST) + + + + + + | Component | Value | Ref Range | Performed | Pathologist | | | | | At | Signature | + + + + + + | CRP | 0.9 (H)Comment: Testing | mg/dL | EXTERNAL | | | | performed at [facility];8 | | LAB | | | | [address];[place] | | | | | | [address] | | | | + + + + + + + + | Specimen | + + | Blood specimen | | (specimen) | + + + +---------+ + + | Performing | Address | City/State/Zipcode | Phone Number | | Organization | | | | + +---------+ + + | EXTERNAL LAB | | | | + +---------+ + + Lipase (09/12/2015 10:37 PM PST) + + + + + + | Component | Value | Ref Range | Performed | Pathologist | | | | | At | Signature | + + + + + + | Lipase | 172Comment: Testing | 73 - 393 U/L | EXTERNAL | | | | performed at [facility];[address] | | LAB | | | | [address];[place], [place] | | | | | | [address] | | | | + + + + + + + + | Specimen | + + | Blood specimen | | (specimen) | + + + +---------+ + + | Performing | Address | City/State/Zipcode | Phone Number | | Organization | | | | + +---------+ + + | EXTERNAL LAB | | | | + +---------+ + + Amylase (09/12/2015 10:37 PM PST) + + + + + + | Component | Value | Ref Range | Performed | Pathologist | | | | | At | Signature | + + + + + + | Amylase | 37Comment: Testing | 25 - 115 U/L | EXTERNAL | | | | performed at [facility];[address] | | LAB | | | | [address];[place], [place] | | | | | | [address] | | | | + + + + + + + + | Specimen | + + | Blood specimen | | (specimen) | + + + +---------+ + + | Performing | Address | City/State/Zipcode | Phone Number | | Organization | | | | + +---------+ + + | EXTERNAL LAB | | | | + +---------+ + + Basic Metabolic Panel (09/12/2015 10:37 PM PST) + + + + + + | Component | Value | Ref Range | Performed | Pathologist | | | | | At | Signature | + + + + + + | Na | 141Comment: Testing | 135 - 143 | EXTERNAL | | | | performed at [facility];888 | mmol/L | LAB | | | | [address];[place] | | | | | | [address] | | | | + + + + + + | K | 3.7Comment: Testing | 3.5 - 4.9 | EXTERNAL | | | | performed at [facility];888 | mmol/L | LAB | | | | [address];[place] | | | | | | [address] | | | | + + + + + + | Cl | 105Comment: Testing | 99 - 109 mmol/L | EXTERNAL | | | | performed at [facility];[address] | | LAB | | | | [address];[place] | | | | | | [address] | | | | + + + + + + | CO2 | 26Comment: Testing | 23 - 32 mmol/L | EXTERNAL | | | | performed at [facility];[address] | | LAB | | | [address];[place] | | | | | | [address] | | | | + + + + + + | Anion Gap | 13Comment: Testing | 5 - 20 mmol/L | EXTERNAL | | | | performed at [facility];[address] | | LAB | | | [address];[place] | | | | | | [address] | | | | + + + + + + | Glucose, | 130 (H)Comment: Testing | 65 - 99 mg/dL | EXTERNAL | | | Fasting | performed at [facility];[address] | | LAB | | | [address];[place] | | | | | | [address] | | | | + + + + + + | BUN | 12Comment: Testing | 8 - 25 mg/dL | EXTERNAL | | | | performed at [facility];[address] | | LAB | | | | [address];[place] | | | | | | [address] | | | | + + + + + + | Creatinine | 1.0Comment: Testing | 0.70 - 1.30 | EXTERNAL | | | | performed at [facility];888 | mg/dL | LAB | | | | [address];[place] | | | | | | [address] | | | | + + + + + + | BUN/Creatin | 12Comment: Testing | | EXTERNAL | | | ine Ratio | performed at [facility];888 | | LAB | | | | [address];[place] | | | | | | [address] | | | | + + + + + + | Calcium | 8.6Comment: Testing | 8.5 - 10.5 | EXTERNAL | | | | performed at [facility];888 | mg/dL | LAB | | | | [address];[place], [place] | | | | | | [address] | | | | + + + [...] | | | | | | at [facility];[address];[place] [address] | | | | + + + [...] + | Diagnosis | + + | RLQ abdominal pain Abdominal pain, right lower quadrant | + + | Leukocytosis Leukocytosis, unspecified | + + documented in this encounter"
--- OUTSIDE RECORDS SUMMARY | ~2019-12-12 | XMS | Encounter Summary ---
Demographics + + + | Address | [address] | | | [place] [address] | + + + | Home Phone | | + + + | Preferred Language | Unknown | + + + | Marital Status | | + + + | Orthodox Affiliation | Unknown | + + + | Race | Unknown | + + + | Ethnic Group | Unknown | + + + Author + + + | Author | [facility] | | | and [place] | + + + | Organization | [facility] | | | and [place] | + + + | Address | Unknown | + + + | Phone | Unavailable | + + + Support + + + + + | Name | Relationship | Address | Phone | + + + + + | Jocelyn Spear | ECON | [address] | | | | | [place], | | | | | [place] [address] | | + + + + + Care Team Providers + +------+ + | Care Religious Leader Name | Role | Phone | + [...] | | [address] | [address] | | | | | [place] | | | | | | [address] | | | | | | [phone] | | | +--------+ + + + [...] Progress Notes by DAVE Dao at 12/28/17 9724 Author: DAVE Dao Service: Emergency Department Author Type: Nurse Melva nova Filed: 12/28/17 1624 Date of Service: 12/28/17 4441 Status: Signed Applications Packager: DAVE Dao (Nurse Practitioner) Reviewed. No further [...]
--- OUTSIDE RECORDS SUMMARY | ~2019-12-12 | XMS | Encounter Summary ---
Demographics + + + | Address | [address] | | | [place] [address] | + + + | Home Phone | | + + + | Preferred Language | Unknown | + + + | Marital Status | | + + + | Bahai Affiliation | Unknown | + + + | Race | White | + + + | Ethnic Group | Not or | + + + Author + + + | Author | [facility] | + + + | Organization | [facility] | + + + | Address | Unknown | + + + | Phone | Unavailable | + + + Support + + +---------+ + | Name | Relationship | Address | Phone | + + +---------+ + | Jocelyn Spear | ECON | Unknown | | + + +---------+ + Care Team Providers + +------+ + | Care Neurology Stroke Physician Name | Role | Phone | + [...] Results | | 2018 | Encounter | [facility] & | MD Jerrica [address] | | | | | Healing [address] | [address] | | | | | Avjeyson Mailcode: CH8C | [place], [place] | | | | | [facility] | [address] | | | | | and Healing, | [phone] | | | | | | | | | | | Floor [place], [place] | | | | | | [address] | | | | | | [phone] | | | +--------+ + + + [...]
--- OUTSIDE RECORDS SUMMARY | ~2019-12-12 | XMS | Encounter Summary ---
Demographics + + + | Address | [address] | | | [place] [address] | + + + | Home Phone | | + + + | Preferred Language | Unknown | + + + | Marital Status | | + + + | Jehovah'S Witness Affiliation | Unknown | + + + | Race | Unknown | + + + | Ethnic Group | Unknown | + + + Author + + + | Author | [facility] | | | and [place] | + + + | Organization | [facility] | | | and [place] | + + + | Address | Unknown | + + + | Phone | Unavailable | + + + Support + + + + + | Name | Relationship | Address | Phone | + + + + + | Jocelyn Spear | ECON | [address] | | | | | [place], | | | | | [place] [address] | | + + + + + Care Team Providers + +------+ + | Care Logging Specialist Name | Role | Phone | + +------+ + PCP | Unavailable | + +------+ + Encounter Details +--------+ + + + + | Date | Type | Department | Care Team | Description | +--------+ + + + + | 10/23/ | Hospital | [facility] | Allan Albright MD | OTHER CHEST PAIN; | | 2011 - | Encounter | MEDICAL CENTER | [address] | Syncope and | | | | CLINICAL DECISION | [place] [address] | collapse; | | 10/24/ | | [address] | [phone] | 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 | | [place], [place] | | cannabis abuse, | | | | [address] | | unspecified; Tobacco | | | | [phone] | | use disorder; | | | [...] Performed At | + + + | [place] [address] | | | Patient Name: KENY SPEAR Date of : | | | 1990 Medical Record: [id number] Account: [id number] | | | Exam Date/Time: 10/24/2010 07:05 [...] 77.54 ml D-E Excursion: 2.66 cm E-F Van Buren: 0.20 | | | m/s HR: 53.21 [...] | A Mansoor: 0.25 m/s TV Dec [place]: 2.14 m/s2 TV Dec Time: | | | 252.95 ms TV E Mansoor: 0.54 m/s TV E/A Ratio: 2.09 | | | Screening Tech: AG Authenticated by: Kirk Berrios MD Report Date/Time: | | | 10-24-2010 11:42:19 | | + + + + + | Procedure Note | + + | Giuliano Thompson Conversion - 03/25/2019 3:07 PM [facility] | | [place], [place] [address]Rw: Patient Name: Caren SPEAR of : | | 1990Medical Record: [id number]: [id number] | | Date/Time: 10/24/2010 07:05Performing Physician: Kirk [...] | | 77.54 mlD-E Excursion: 2.66 cmE-F [place]ren: 0.20 m/sHR: 53.21 BPMAV maxP.38 | | mmHgAV meanP.94 mmHgAV Vmax: 1.26 m/Casi Vmean: 0.77 m/Casi VTI: 25.84 cmAVA | | Vmax: 3.20 cm2AVA (VTI): 2.87 sv5PSRQ Dopp: 1.78 l/qujw9XBLK Dopp: 4.15 l/minHR: | | 55.96 BPMLVOT [...] A | | Mansoor: 0.25 m/sTV Dec Van [place]ren: 2.14 m/s2TV Dec Time: 252.95 msTV E Mansoor: 0.54 m/sTV | | E/A Ratio: 2.09 Screening Tech: CMAuthenticated by: Kirk Berrios MDReport Date/Time: | [...] | |D-E Excursion: 2.66 cm | |E-F Van Buren: 0.20 m/s | |HR: 53.21 BPM | [...] A Mansoor: 0.25 m/s | |TV Dec Van [place]ren: 2.14 m/s2 | |TV Dec Time: 252.95 ms | |TV E Mansoor: 0.54 m/s | |TV E/A Ratio: 2.09 | | | |Screening Tech: CM | |Authenticated by: Kirk Berrios MD | |Report Date/Time: 10-24-2010 11:42:19 | + + XR Chest 2 Vws (10/23/2010 6:30 PM PDT) + + | Specimen | + + | | + + + + + | Narrative | Performed At | + + + | [facility] [address] Ph: | | | Patient Name: DURAN KENY Bowman Date of : | | | 1990 Medical Record: [id number] Account: [id number] | | | Exam Date/Time: 10/23/2010 17:43 [...] - 03/25/2019 3:07 PM PDT | | [facility] | | [facility] [address] | | | | | | Patient Name: KENY SPEAR | | Date of : 1990 | | Medical Record: [id number] | | Account: [id number] | | | | | | Exam [...]
--- OUTSIDE RECORDS SUMMARY | ~2019-12-12 | XMS | Encounter Summary ---
Demographics + + + | Address | [address] | | | [place] [address] | + + + | Home Phone | | + + + | Preferred Language | Unknown | + + + | Marital Status | | + + + | Sikhism Affiliation | Unknown | + + + [...] + | Jocelyn Spear | ECON | [address] | | | | | [place], | | | | | [place] [address] | | + + + + + Care Team Providers + +------+ + | Care Industrial Sales Manager Name | Role | Phone | + +------+ + PCP | Unavailable | + +------+ + Encounter Details +--------+ + + + + | Date | Type | Department | Care Team | Description | +--------+ + + + + | 12/28/ | Emergency | [facility] | Catalino Valdez, | | | 2017 | | MEDICAL CENTER | MD [address] | | | | | EMERGENCY CENTER | [place] [address] | | | | | [address] | [phone] | | | | | [place], [place] | | | | | | [address] | | | | | | [phone] | | | +--------+ + + + [...]
--- OUTSIDE RECORDS SUMMARY | ~2019-12-12 | XMS | Encounter Summary ---
Demographics + + + | Address | [address] | | | [place] [address] | + + + | Home Phone | | + + + | Preferred Language | Unknown | + + + | Marital Status | | + + + | Mu-Ism Affiliation | Unknown | + + + | Race | Unknown | + + + | Ethnic Group | Unknown | + + + Author + + + | Author | [facility] | | | and [place] | + + + | Organization | [facility] | | | and [place] | + + + | Address | Unknown | + + + | Phone | Unavailable | + + + Support + + + + + | Name | Relationship | Address | Phone | + + + + + | Jocelyn Spear | ECON | [address] | | | | | [place], | | | | | [place] [address] | | + + + + + Care Team Providers + +------+ + | Care Medical Logistics Specialist Name | Role | Phone | + +------+ + PCP | Unavailable | + +------+ + Encounter Details +--------+ + + + + | Date | Type | Department | Care Team | Description | +--------+ + + + + | 10/28/ | Emergency | [facility] | Tae Veloz DO | Acute pain of right | | 2018 - | | MEDICAL CENTER | [address] [place] | shoulder | | | | EMERGENCY CENTER | [address] [place], [place] | | | 10/29/ | | [address] | [address] | | | 2018 | | [place], [place] | [phone] | | | | | [address] | | | | | | [phone] | | | +--------+ + + + [...] + | Blood Pressure | 116/72 | 10/29/2017 12:01 AM | | | | | PDT | | + + + + + | Pulse | 71 | 10/29/2017 12:01 AM | | | | | PDT | | + + + + + | Temperature | 36.2 C (97.1 F) | 10/29/2017 12:01 AM | | | | | PDT | | + + + + + | Respiratory Rate | 16 | 10/29/2017 12:01 AM | | | | | PDT | | + + + + + | Oxygen Saturation | - | - | | + + + + + | Inhaled Oxygen | - | - | | | Concentration | | | | + + + + + | Weight | 98.4 kg (216 lb 14.9 | 10/29/2017 12:01 AM | | | | oz) | PDT | | + + + + + | Height | - | - | | + + + + + | Body Mass Index | 27.85 | 03/07/2017 1:09 PM | | | [...] XR CHEST 2 VIEWS | Routin | 10/28/2017 | | Results for this | | | e | 9:53 PM | | procedure are in the | | | | PDT | | results section. | + +--------+ + + + | XR SHOULDER RIGHT 2 | Routin | 10/28/2017 | | Results for this | | + VW | e | 9:53 PM | | procedure are in the | | | | PDT | | results section. | + +--------+ + + + documented in this encounter Results XR Chest 2 Vws (10/28/2017 9:53 PM PDT) + + | Specimen | + + | | + + + + + | Impressions | Performed At | + + + | 1. No acute cardiopulmonary process noted. Electronically | | | signed by Garrett Gabriel MD on 10/28/2017 10:21 PM | | + + + + + + | Narrative | Performed At | + + + | KENY SPEAR 1990 27 years XR CHEST 2 VIEW FRONTAL AND | | | LATERAL 10/28/2017 9:53 PM INDICATION: Pain. COMPARISON study: | | | 10/23/2010. TECHNIQUE: 2 views FINDINGS: Lungs appear clear. | | | Cardiomediastinal silhouette appears unremarkable. Osseous structures | | | appear unremarkable. No pleural effusion seen. | | + + + + + | Procedure Note | + + | Giuliano Thompson - 03/15/2019 5:46 AM PDT KENY [id number] yearsXR CHEST | | 2 VIEW FRONTAL AND LATERAL10/28/2017 9:53 PM INDICATION: Pain. COMPARISON study: | | 10/23/2010. TECHNIQUE: 2 views FINDINGS: Lungs appear clear. Cardiomediastinal | | silhouette appears unremarkable. Osseous structures appear unremarkable. No pleural | | effusion seen. IMPRESSION: 1. No acute cardiopulmonary process noted. Electronically | | signed by Garrett Gabriel MD on 10/28/2017 10:21 PM | |INDICATION: Pain. | | | |COMPARISON study: 10/23/2010. | | | |TECHNIQUE: 2 views | | | |FINDINGS: Lungs appear clear. Cardiomediastinal silhouette appears unremarkable. Osseous s tructures appear unremarkable. No pleural effusion seen. | | | |IMPRESSION: | |1. No acute cardiopulmonary process noted. | | | | | + + XR Shoulder Right 2 + Vw (10/28/2017 9:53 PM PDT) + + | Specimen | + + | | + + + + + | Impressions | Performed At | + + + | 1. No acute fracture seen. | | + + + + + + | Narrative | Performed At | + + + | [facility] 1990 XR SHOULDER RIGHT 10/28/2017 9:53 PM | | | INDICATION: Shoulder pain. COMPARISON: None. TECHNIQUE: Right | | | shoulder series, 5 views FINDINGS: No acute fracture, dislocation | | | or subluxation seen. Soft tissues appear grossly unremarkable. No | | | degenerative changes seen. | | + + + + + | Procedure Note | + + | Giuliano Thompson - 03/15/2019 5:46 AM WENDIE Bowman 1990XR SHOULDER | | RIGHT10/28/2017 9:53 PM INDICATION: Shoulder pain. COMPARISON: None. TECHNIQUE: Right | | shoulder series, 5 views FINDINGS: No acute fracture, dislocation or subluxation seen. | | Soft tissues appear grossly unremarkable. No degenerative changes seen. IMPRESSION: 1. | | No acute fracture seen. | | 10:21 PM | | | |COMPARISON: None. | | | |TECHNIQUE: Right shoulder series, 5 views | | | |FINDINGS: No acute fracture, dislocation or subluxation seen. Soft tissues appear grossly u nremarkable. No degenerative changes seen. | | | |IMPRESSION: | |1. No acute fracture seen. | | | | | + + documented in this encounter Visit Diagnoses + + | Diagnosis | + + | Acute pain of right shoulder | + + documented in this encounter"
--- OUTSIDE RECORDS SUMMARY | ~2019-12-12 | XMS | Encounter Summary ---
Demographics + + + | Address | [address] | | | [place] [address] | + + + | Home Phone | | + + + | Preferred Language | Unknown | + + + | Marital Status | | + + + | Quaker Affiliation | Unknown | + + + | Race | White | + + + | Ethnic Group | Not or | + + + Author + + + | Author | [facility] | + + + | Organization | [facility] | + + + | Address | Unknown | + + + | Phone | Unavailable | + + + Support + + +---------+ + | Name | Relationship | Address | Phone | + + +---------+ + | Jocelyn Spear | ECON | Unknown | | + + +---------+ + Care Team Providers + +------+ + | Care Precision Machining Instructor Name | Role | Phone | + [...] results | | 2018 | Encounter | [facility] & | MD Jerrica [address] | | | | | Healing [address] | [address] | | | | | Chelsi Mailcode: CH8C | [place], [place] | | | | | [facility] | [address] | | | | | and [place], | [phone] | | | | | [facility] | | | | | | Floor [place], [place] | | | | | | [address] | | | | | | [phone] | | | +--------+ + + + [...]
--- OUTSIDE RECORDS SUMMARY | ~2019-12-12 | XMS | Encounter Summary ---
Demographics + + + | Address | [address] | | | [place] [address] | + + + | Home Phone | | + + + | Preferred Language | Unknown | + + + | Marital Status | | + + + | Hindu Affiliation | Unknown | + + + | Race | Unknown | + + + | Ethnic Group | Unknown | + + + Author + + + | Author | [facility] | | | and [place] | + + + | Organization | [facility] | | | and [place] | + + + | Address | Unknown | + + + | Phone | Unavailable | + + + Support + + + + + | Name | Relationship | Address | Phone | + + + + + | Jocelyn Spear | ECON | [address] | | | | | [place], | | | | | [place] [address] | | + + + + + Care Team Providers + +------+ + | Care Cheese Supervisor Name | Role | Phone | [...] | | | | EMERGENCY CENTER | [place] [address] | | | | | [address] | [phone] | | | | | [place], [place] | | | | | | [address] | | | | | | [phone] | | | +--------+ + + + [...] K/uL | LAB | | | | [facility];[address] | | [address];[place] [address] | | | | + + + + + + | Red Blood | 5.42Comment: Testing | 4.20 - 5.70 | EXTERNAL | | | Cells | performed at [facility];[address] | M/uL | LAB | | | Counted | [address];[place] | | | | | | [address] | | | | + + + + + + | Hemoglobin | 16.0Comment: Testing | 13.2 - 17.0 | EXTERNAL | | | | performed at [facility];888 | g/dL | LAB | | | | [address];[place] | | | | | | [address] | | | | + + + + + + | Hematocrit, | 46.4Comment: Testing | 39.0 - 50.0 % | EXTERNAL | | | POC | performed at [facility];[address] | | LAB | | | | [address];[place] | | | | | | [address] | | | | + + + + + + | MCV | 85.6Comment: Testing | 80.0 - 100.0 fl | EXTERNAL | | | | performed at [facility];[address] | | LAB | | | | [address];[place] | | | | | | [address] | | | | + + + + + + | MCH | 29.5Comment: Testing | 27.0 - 34.0 pg | EXTERNAL | | | | performed at [facility];[address] | | LAB | | | | [address];[place] | | | | | | [address] | | | | + + + + + + | MCHC | 34.4Comment: Testing | 32.0 - 35.5 | EXTERNAL | | | | performed at [facility];888 | g/dL | LAB | | | | [address];[place] | | | | | | [address] | | | | + + + + + + | RDW-CV | 40.3Comment: Testing | 37 - 53 fl | EXTERNAL | | | | performed at [facility];[address] | | LAB | | | | [address];[place] | | | | | | [address] | | | | + + + + + + | Platelet | 391Comment: Testing | 150 - 400 K/uL | EXTERNAL | | | Count | performed at [facility];888 | | LAB | | | Plasma | [address];[place] | | | | | | [address] | | | | + + + + + + | MPV | 8.3Comment: Testing | fl | EXTERNAL | | | | performed at [facility];[address] | | LAB | | | | [address];[place] | | | | | | [address] | | | | + + + + + + | Differentia | MANUALComment: Testing | | EXTERNAL | | | l Type | performed at [facility];[address] | | LAB | | | | [address];[place] | | | | | | [address] | | | | + + + + + + | Segmented | 66Comment: Testing | % | EXTERNAL | | | Neutrophils | performed at [facility];888 | | LAB | | | Manual | [address];[place] | | | | | | [address] | | | | + + + + + + | % Bands | 30Comment: Testing | % | EXTERNAL | | | | performed at [facility];[address] | | LAB | | | | [address];[place] | | | | | | [address] | | | | + + + + + + | Lymphocytes | 4Comment: Testing | % | EXTERNAL | | | Manual | performed at [facility];[address] | | LAB | | | | [address];[place] | | | | | | [address] | | | | + + + + + + | Absolute | 9.99 (H)Comment: Testing | 1.90 - 7.40 | EXTERNAL | | | Neutrophils | performed at [facility];888 | K/uL | LAB | | | | [address];[place] | | | | | | [address] | | | | + + + + + + | Bands | 4.55 (H)Comment: Testing | 0.00 - 0.20 | EXTERNAL | | | Manual | performed at [facility];888 | K/uL | LAB | | | | [address];[place] | | | | | | [address] | | | | + + + + + + | Absolute | 0.61 (L)Comment: Testing | 1.00 - 3.90 | EXTERNAL | | | Lymphocytes | performed at [facility];[address] | K/uL | LAB | | | | [address];[place] | | | | | | [address] | | | | + + + + + + | Platelet | ADEQUATEComment: Testing | | EXTERNAL | | | Estimate | performed at [facility];[address] | | LAB | | | | [address];[place] | | | | | | [address] | | | | + + + + + + | RBC | RBC AND PLT MORPHOLOGY | | EXTERNAL | | | Morphology | APPEAR NORMALComment: | | LAB | | | | Testing performed at | | | | | | [facility];[address];[place] [address] | | | | + + + [...] EXTERNAL | | | | performed at [facility];8 | | LAB | | | | [address];[place] | | | | | | [address] | | | | + + + [...] EXTERNAL | | | | performed at [facility];888 | | LAB | | | | [address];[place], [place] | | | | | | [address] | | | | + + + [...] EXTERNAL | | | | performed at [facility];[address] | | LAB | | | | [address];[place], [place] | | | | | | [address] | | | | + + + [...] EXTERNAL | | | | performed at [facility];888 | mmol/L | LAB | | | | [address];[place] | | | | | | [address] | | | | + + + + + + | K | 3.7Comment: Testing | 3.5 - 4.9 | EXTERNAL | | | | performed at [facility];888 | mmol/L | LAB | | | | [address];[place] | | | | | | [address] | | | | + + + + + + | Cl | 105Comment: Testing | 99 - 109 mmol/L | EXTERNAL | | | | performed at [facility];[address] | | LAB | | | | [address];[place] | | | | | | [address] | | | | + + + + + + | CO2 | 26Comment: Testing | 23 - 32 mmol/L | EXTERNAL | | | | performed at [facility];[address] | | LAB | | | | [address];[place] | | | | | | [address] | | | | + + + + + + | Anion Gap | 13Comment: Testing | 5 - 20 mmol/L | EXTERNAL | | | | performed at [facility];[address] | | LAB | | | | [address];[place] | | | | | | [address] | | | | + + + + + + | Glucose, | 130 (H)Comment: Testing | 65 - 99 mg/dL | EXTERNAL | | | Fasting | performed at [facility];[address] | | LAB | | | | [address];[place] | | | | | | [address] | | | | + + + + + + | BUN | 12Comment: Testing | 8 - 25 mg/dL | EXTERNAL | | | | performed at [facility];[address] | | LAB | | | | [address];[place] | | | | | | [address] | | | | + + + + + + | Creatinine | 1.0Comment: Testing | 0.70 - 1.30 | EXTERNAL | | | | performed at [facility];888 | mg/dL | LAB | | | | [address];[place] | | | | | | [address] | | | | + + + + + + | BUN/Creatin | 12Comment: Testing | | EXTERNAL | | | ine Ratio | performed at [facility];888 | | LAB | | | | [address];[place] | | | | | | [address] | | | | + + + + + + | Calcium | 8.6Comment: Testing | 8.5 - 10.5 | EXTERNAL | | | | performed at [facility];888 | mg/dL | LAB | | | | [address];[place], [place] | | | | | | [address] | | | | + + + [...] | | | | | | at [facility];[address];[place] [address] | | | | + + + [...]
--- OUTSIDE RECORDS SUMMARY | ~2019-12-12 | XMS | Encounter Summary ---
Demographics + + + | Address | [address] | | | [place] [address] | + + + | Home Phone | | + + + | Preferred Language | Unknown | + + + | Marital Status | | + + + | Protestant Affiliation | Unknown | + + + | Race | White | + + + | Ethnic Group | Not or | + + + Author + + + | Author | [facility] | + + + | Organization | [facility] | + + + | Address | Unknown | + + + | Phone | Unavailable | + + + Support + + +---------+ + | Name | Relationship | Address | Phone | + + +---------+ + | Jocelyn Spear | ECON | Unknown | | + + +---------+ + Care Team Providers + +------+ + | Care Director Of Outpatient Services Name | Role | Phone | + [...] | | 2010 | Records | [address] | [phone] | | | | | [address] | | | | | | [place], [place] | | | | | | [address] | | | +--------+ + + + [...]
--- OUTSIDE RECORDS SUMMARY | ~2019-12-12 | XMS | Encounter Summary ---
Demographics + + + | Address | [address] | | | [place] [address] | + + + | Home Phone | | + + + | Preferred Language | Unknown | + + + | Marital Status | | + + + | Nondenominational Affiliation | Unknown | + + + | Race | White | + + + | Ethnic Group | Not or | + + + Author + + + | Author | [facility] | + + + | Organization | [facility] | + + + | Address | Unknown | + + + | Phone | Unavailable | + + + Support + + +---------+ + | Name | Relationship | Address | Phone | + + +---------+ + | Jocelyn Spear | ECON | Unknown | | + + +---------+ + Care Team Providers + +------+ + | Care Market Director Name | Role | Phone | + +------+ + | No Pcp Per Patient | PCP | Unavailable | + +------+ + Encounter Details +--------+ + + + + | Date | Type | Department | Care Team | Description | +--------+ + + + + | 10/07/ | Outside | UNKNOWN DEPARTMENT | Other, Faculty | | | 2008 | Records | [address] | [phone] | | | | | [address] | | | | | | [place], [place] | | | | | | [address] | | | +--------+ + + + [...] + | OUTSIDE RADIOLOGY - | | 10/07/2008 | | Results for this | | CT | | 12:00 AM | | procedure are in the | | | | PST | | results section. | + +--------+ + + + documented in this encounter Results OUTSIDE RADIOLOGY - CT (10/07/2008 12:00 AM PST) + + + | Narrative | Performed At | + + + | | | + + + documented in this encounter Visit Diagnoses Not on filedocumented in this encounter"
--- OUTSIDE RECORDS SUMMARY | ~2019-12-12 | XMS | Encounter Summary ---
Demographics + + + | Address | [address] | | | [place] [address] | + + + | Home Phone | | + + + | Preferred Language | Unknown | + + + | Marital Status | | + + + | Pentecostal Affiliation | Unknown | + + + | Race | White | + + + | Ethnic Group | Not or | + + + Author + + + | Author | [facility] | + + + | Organization | [facility] | + + + | Address | Unknown | + + + | Phone | Unavailable | + + + Support + + +---------+ + | Name | Relationship | Address | Phone | + + +---------+ + | Jocelyn Spear | ECON | Unknown | | + + +---------+ + Care Team Providers + +------+ + | Care Switchboard Installer Name | Role | Phone | + [...] | | | gy | Convulsions, | [address] | | | | | | unspecified | [address] | | | | | | convulsion | [address] | | | | | | type (HCC) | [place], [place] | | | | | | Procedures | [address] | | | | | | EEG ROUTINE | Phone: | | | | | | | [phone] | | | | | | | Fax: | | | | | | | [phone] | | +--------+--------+ + + + + [...] | | gy | Convulsions, | MD [address] | | | | | | unspecified | [address] | | | | | | convulsion | [address] | | | | | | type (HCC) | [place], [place] | | | | | | Procedures | [address] | | | | | | EEG ROUTINE | Phone: | | | | | | | [phone] | | | | | | | Fax: | | | | | | | [phone] | | +--------+--------+ + + + + [...] Lance [address] | | | | | [facility] | Road [place], [place] | | | | | [address] | [address] | | | | | [place], [place] | | | | | | [address] | | | | | | [phone] | | | +--------+ + + + [...] | + + + | Patient Name: Trevni Spear Date of : 1990 Medical | [facility] - | | Record Number: [id number] Date of Test: 07/19/2018 Place of | [facility], | | Service: [facility] [phone] [facility] Department: EEG [facility] - | POINT OF CARE | | [phone] ROUTINE EEG Reason for Exam: Evaluate for [...] Lynn MD. Suggested CPT: | | | 76801 - EEG Routine Awake & Asleep Suggested Dx: R56.9 Unspecified | | | convulsions | | + + + + + + + + | Performing | Address | City/State/Zipcode | Phone Number | | Organization | | | | + + + + + | [facility] | [address] | [place], [place] | | | [facility] | [address] | [address] | | | TESTS | | | | + + + + + documented in this encounter Visit Diagnoses + + | Diagnosis | + + | Convulsions, unspecified convulsion type (HCC) | + + documented in this encounter"
--- OUTSIDE RECORDS SUMMARY | ~2019-12-12 | XMS | Encounter Summary ---
Demographics + + + | Address | [address] | | | [place] [address] | + + + | Home Phone | | + + + | Preferred Language | Unknown | + + + | Marital Status | | + + + | Jewish Affiliation | Unknown | + + + | Race | Unknown | + + + | Ethnic Group | Unknown | + + + Author + + + | Author | [facility] | | | and [place] | + + + | Organization | [facility] | | | and [place] | + + + | Address | Unknown | + + + | Phone | Unavailable | + + + Support + + + + + | Name | Relationship | Address | Phone | + + + + + | Jocelyn Spear | ECON | [address] | | | | | [place], | | | | | [place] [address] | | + + + + + Care Team Providers + +------+ + | Care Fuel Attendant Name | Role | Phone | + +------+ + PCP | Unavailable | + +------+ + Encounter Details +--------+ + + + + | Date | Type | Department | Care Team | Description | +--------+ + + + + | 06/21/ | Emergency | [facility] | Kesha Hoyt, | Lumbar pain; | | 2018 | | [facility]ICAL [facility] | MD [address] | Degenerative disc | | | | EMERGENCY CENTER | [place] [address] | disease, lumbar; | | | | [address] | [phone] | Seizure-like | | | | [place], [place] | | activity ([facility]) | | | | [address] | | | | | | [phone] | | | +--------+ + + + [...] - 1.030 | EXTERNAL | | | [place], | | | LAB | | | [...] | | LAB | | | | [facility];[address] | | | | | | [facility];[place] [address] | | | | + + + [...] EXTERNAL | | | | performed at [facility];888 | | LAB | | | | [address];[place], [place] | | | | | | [address] | | | | + + + [...] | | | Basophils | performed at [facility];888 | K/uL | LAB | | | | [address];[place] | | | | | | [address] | | | | + + + [...] EXTERNAL | | | | performed at [facility] | | LAB | | | | [address];[place], [place] | | | | | | [address] | | | | + + + [...] | | | | | performed at [facility];[address] | | | | | | [facility];[place], [place] | | | | | | [address] | | | | + + + [...]
--- OUTSIDE RECORDS SUMMARY | ~2019-12-12 | XMS | Clinical Summary ---
Demographics + + + | Address | [address] | | | [place] [address] | + + + | Home Phone | | + + + | Preferred Language | Unknown | + + + | Marital Status | | + + + | Presybeterian Affiliation | Unknown | + + + | Race | Unknown | + + + | Ethnic Group | Unknown | + + + Author + + + | Author | [facility] (Historical as of | | | 03-18-19) | + + + | Organization | [facility] (Historical as of | | | 03-18-19) | + + + | Address | Unknown | + + + | Phone | Unavailable | + + + Support + + + + + | Name | Relationship | Address | Phone | + + + + + | Jocelyn Spear | ECON | [address] | | | | | [place], | | | | | [place] [address] | | + + + + + Care Team Providers + +------+ + | Care Printer Slotter Operator Name | Role | Phone | + +------+ + | None, Per Pt | PP | [phone] | + +------+ + Allergies + + [...] | + + + + + + Current Medications + + +--------+---------+------+------+-------+ | Prescription | Sig. | Disp. | Refills | Star | End | Statu | | | | | | t | Date | s | | | | | | Date | | | + + +--------+---------+------+------+-------+ | | Take 1-2 tablets by | 20 | 0 | 11/1 | | Activ | | HYDROcodone-acetamin | mouth every 6 (six) | tablet | | 7/20 | | e | | ophen (NORCO) 5-325 | hours as needed for | | | 18 | | | | MG per tablet | Pain. Do not exceed [...] | | | | | + + +--------+---------+------+------+-------+ Active Problems Not on file Social History + +-------+ +--------+------+ | Tobacco Use | Types | Packs/Day | Years | Date | | | | | Used | | + +-------+ +--------+------+ | Current Every Day | | 0.5 | 12 | | | Smoker | | | | | + +-------+ +--------+------+ + +---+---+---+ | Smokeless Tobacco: | | | | | Never Used | | | | + +---+---+---+ + + +---------+ + | Alcohol Use | Drinks/We | oz/Week | Comments | | | ek | | | + + +---------+ + | No | | | rare | + + +---------+ + + + + | Sex Assigned at | Date Recorded | | | | + + + | Not on file | | + + + Last Filed Vital Signs + + + + | Vital Sign | Reading | Time Taken | + + + + | Blood Pressure | 118/70 | 06/21/2018 11:04 PM PST | + + + + | Pulse | 87 | 06/21/2018 11:04 PM PST | + + + + | Temperature | 36.5 C (97.7 F) | 06/21/2018 11:04 PM PST | + + + + | Respiratory Rate | 20 | 06/21/2018 11:04 PM PST | + + + + | Oxygen Saturation | 94% | 06/21/2018 11:04 PM PST | + + + + | Inhaled Oxygen | - | - | | Concentration | | | + + + + | Weight | 111.6 kg (246 lb 0.5 | 06/21/2018 8:40 PM PST | | | oz) | | + + + + | Height | 188 cm (6' 2") | 12/28/2017 1:30 PM PDT | + + + + | Body Mass Index | 31.59 | 06/21/2018 8:40 PM PST | + + + + Plan of Treatment Not on file Results Not on filefrom Last 3 Months Insurance + +--------+ +------+-------+ + | Payer | Benefi | Subscriber | Type | Phone | Address | | | t Plan | ID | | | | | | / | | | | | | | Group | | | | | + +--------+ +------+-------+ + | MEDICAID | [employer] | [id number] | | | [address] | | | [place] | | | | [place] | | | [place] | | | | [address] | | | 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
--- OUTSIDE RECORDS SUMMARY | ~2019-12-12 | XMS | Clinical Summary ---
Demographics + + + | Address | [address] | | | [place] [address] | + + + | Home Phone | | + + + | Preferred Language | Unknown | + + + | Marital Status | | + + + | Voodoo Affiliation | Unknown | + + + | Race | Unknown | + + + | Ethnic Group | Unknown | + + + Author + + + | Author | [employer] (Historical as of | | | 03-18-19) | + + + | Organization | [facility] [employer] (Historical as of | | | 03-18-19) | + + + | Address | Unknown | + + + | Phone | Unavailable | + + + Support + + + + + | Name | Relationship | Address | Phone | + + + + + | Jocelyn Spear | ECON | [address] | | | | | [place], | | | | | [place] [address] | | + + + + + Care Team Providers + +------+ + | Care Job Placement Counselor Name | Role | Phone | + [...] +------+-------+ + | MEDICAID | [employer] | [id number] | | | [address] | | | N | | | | [place] | | | [place] | | | | [address] | | | APPEALS ASSISTANT | | | | | + +--------+ [...] | Self [birth year] | Home: | [address] | | | al/Fam | | 1989 | [phone] | [facility] | | | [place] | | | [address] | [place] | | | | | | | [address] | + +--------+ +--------+ + +
--- OUTSIDE RECORDS SUMMARY | ~2019-12-12 | XMS | Encounter Summary ---
Demographics + + + | Address | [address] | | | [place] [address] | + + + | Home Phone | | + + + | Preferred Language | Unknown | + + + | Marital Status | | + + + | Cheondoism Affiliation | Unknown | + + + | Race | White | + + + | Ethnic Group | Not or | + + + Author + + + | Author | [facility] | + + + | Organization | [facility] | + + + | Address | Unknown | + + + | Phone | Unavailable | + + + Support + + +---------+ + | Name | Relationship | Address | Phone | + + +---------+ + | Jocelyn Spear | ECON | Unknown | | + + +---------+ + Care Team Providers + +------+ + | Care Joint Supervisor Name | Role | Phone | [...] | | | | Neurophysiolo | | Mandy Becerril, | | | | | gy | Convulsions, | [address] | | | | | | unspecified | [address] | | | | | | convulsion | Tami Isabel | | | | | | type (HCC) | [place], [place] | | | | | | Procedures | [address] | | | | | | EEG ROUTINE | Phone: | | | | | | | [phone] | | | | | | | Fax: | | | | | | | [phone] | | +--------+--------+ + + + + Reason for Visit Intake Referral (Emergency) +--------+--------+ + + + + | Status | Reason | Specialty | Diagnoses / | Referred By | Referred To | | | | | Procedures | Contact | Contact | +--------+--------+ + + + + | Closed | | Neurology | Diagnoses | Isra, | Keerthi, | | | | | Epilepsy, | Dean Browne, | Mandy Becerril, | | | | | unspecified, | PA-C URGENT | [address] | | | | | not | HEALTH CARE | [address] | | | | | intractable, | CENTER [address] | [facility] | | | | | without | [address] | [place], [place] | | | | | status | AVE | [address] | | | | | epilepticus | YU, | Phone: | | | | | Procedures | [place] [address] | [phone] | | | | | CT NEW | Phone: | Fax: | | | | | PATIENT | [phone] | [phone] | | | | | LEVEL V CT | Fax: | | | | | | EST PATIENT | [phone] | | | | | | LEVEL V | | | +--------+--------+ + + + + Encounter Details +--------+---------+ + + + | Date | Type | Department | Care Team | Description | +--------+---------+ + + + | 07/19/ | Office | Neurology at | Mandy Sanchez | Convulsions, | | 2018 | Visit | [facility] & | MD Jerrica [address] | unspecified | | | | Healing [address] | [address] | convulsion type | | | | Avjeyson Mailcode: CH8C | [place], [place] | ([facility]) (Primary Dx) | | | | [facility] | [address] | | | | | and Healing, | [phone] | | | | | | | | | | | Floor [place], [place] | | | | | | [address] | | | | | | [phone] | | | +--------+---------+ + + + Social History + + [...] this encounter Last Filed Vital Signs + +---------+ + [...] - | | + +---------+ + + documented in this encounter Progress Notes Mandy Sanchez MD - 07/19/2018 8:00 AM PST Neurology Consult Note Date: July 19, 2018 Patient Name: Trevin Spear PCP: No Pcp Per PATIENT Referring Provider: Dean Dhaliwal PA-C Assessment: 1. Convulsions 2. Chronic low back pain Mr. Spear is presenting for evaluation of 3 months of very frequent episodes concerning fo r seizures. His presentation has some elements of epileptic and some elements of non-epilep tic events. He has a reported history of childhood seizures (although not treated on any me dication) and his partner reports that he is having these events in sleep, which could sugge st an epileptic etiology. His events are triggered by activity/stress and have a significan t pain component, with tip of tongue biting and some memory of generalized events, which cou ld suggest non-epileptic events. I also witnessed some of an event in the room today, and h e was able to answer despite bilateral involvement of limbs. Luckily, we are able to get an EEG today and he is having such frequent events that we will likely be able to capture a sp ell. Based on this result, we can determine if further workup/treament is indicated at this time. Plan: 1. EEG routine today 2. Further workup and follow-up pending results of EEG Subjective: Mr. Trevin Spear is a 28 y.o. male who is seen in consultation at the request of Dean Ochoa PA-C for evaluation of possible seizures. Per outside notes from [facility]: "The patient was sitting on the exam table [at an outside urgent care center] in a straight and upright position and was extremely quiet, h e answered some of my questions then he went totally silent, had a blank stare on his facial expression and was absolutely rigid. He was having a seizure. His added he had one e pisode of urinary incontinence. He reported he had seizures as a child but his last one was at age 14. Then about a month ago the seizures started to return and he has been having th em more frequent and they are getting more intense. He had 2 seizures while sitting in the exam room." Per [facility] ED notes, these episodes have been in the setting of lumbar back pain. No tongu e biting or injuring self. Did have one episode with urinary incontinence. He reports florina ing all over. Spells hurt and put him in extreme pain. Body tenses up and muscles sit there and contract . Has been going on since sometime in May. Grandparents watched him have one and he do es not remember it. Whole body starts to shake; he can't be moved. Eyes go into glazed ove r or rolled back. Can't talk often, sometimes will try but will stutter. Can happen laying down or standing up. SO reports he does it all night. If he is holding her it just goes t ighter and tighter. Sometimes will be acting out dreams. Movements are large in arms and l egs. Will last 5-10 minutes if it's a bad one. Takes a while to get out of it when it stop s. He remembers most of them. After it's over he feels nauseous, painful. Confused. Will ta ke about 20 minutes to come back to what's actually happening. Right before it comes he can feel a twitch start in his back, then hands will start to lock up and pain. Then will put tongue ring bar between teeth to avoid biting tip of tongue. Has longstanding back pain. The pain is intense, not like anything he has ever felt before . Episodes can happen anywhere. 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 Has happened in the car - had just enough time to heat treat puller and stop as he has a few seconds warning. Has not had an EEG. Spells are happening multiple times per day - every 30-45 minutes when up and doing things or stimulated by social interactions. They happen less when laying in bed. For these spells they tried diazepam - but caused hallucinations. Also trying oxycodone - may numb the pain but doesn't reduce the episodes. Outgrew seizures around age 14, started around age 12. Were called 'black outs.' He would literally lose hours. Would drop to the ground and his mom would pick him up. Doesn't thin k he was on medication. MRI lumbar spine per ED notes showed "degenerative disc disease, and bulging disc of multip le lumbar discs, without acute pathology noted. CT head (10/16/10): Impression: Negative CT examination for acute intracranial hemorrhage, m ass effect, or midline shift. CT head (06/29/18): IMPRESSION: Normal CT scan of the head. Review of Systems: A full review of system was obtained and was negative apart from what is noted in the histo ry of present illness. Allergies: Amoxicillin; Erythromycin; Penicillins; and Venom-honey bee Medications: Current Outpatient Prescriptions Medication Sig oxyCODONE-acetaminophen 5-325 mg oral tablet Take 5-325 mg by mouth as needed. No current facility-administered medications for this visit. Medical History Hand surgery, appendix removal Social History: Social History Social History Marital status: Spouse name: N/A Number of children: N/A Years of education: N/A Occupational History Not on file. Social History Main Topics Smoking status: Current Every Day Smoker Packs/day: 1.00 Types: Cigarettes Start date: 07/19/2004 Smokeless tobacco: Never Used Alcohol use Yes Comment: 1 a month Drug use: Yes Comment: Cannabis Sexual activity: Not on file Other Topics Concern Not on file Social History Narrative No narrative on file Family History: Family History Problem Relation No Known Problems Mother No Known Problems Father Objective : BP 121/82 | Pulse 88 Physical Exam: GENERAL: The patient is tired appearing and painful appearing. HEENT: no ear, nose or throat abnormalities. Normocephalic. LUNGS: Breathing comfortably on room air. HEART: Regular rate and rhythm. ABDOMEN: Abdomen was soft. EXTREMITIES: There was no swelling. SKIN: There was no rash or ulcers. NEUROLOGIC: COGNITIVE: The patient was alert, oriented to time,person and place. The patient behaved no rmally. Pt had one event during our visit which involved jerking of his upper body, clenching of hi s left hand. He was able to intermittently respond during this episode, endorsed significan t pain. CRANIAL NERVES: Extraocular movements were normal. Pupillary reflex was normal. Eye closure and mouth closure were strong. Tongue and palate were midline. There was no noticeable atro phy of the tongue. The tongue movements were normal. Sensation to light touch over the face was normal. CEREBELLUM: Leelpj-jr-hjlp was normal. GAIT: Antalgic casual gait. MOTOR: Bulk and tone are normal throughout. There is no atrophy or fasciculations MUSCLE STRENGTH MRC SCALE RIGHT / LEFT Full strength in bilateral upper and lower extremities, although limited due to pain. SENSORY: Reports decreased sensation on the R arm to light touch. MANDY SANCHEZ MD I spent 31 minutes with the patient. Greater than 50% of the time was spent counseling the patient regarding differential diagnosis, planned workup. documented in this encounter Plan of Treatment Not on filedocumented as of this encounter Results EEG ROUTINE (07/19/2018) + + + | Narrative | Performed At | + + + | Patient Name: Trevin Spear Date of : 1990 Medical [facility] | | Record Number: [id number] Date of Test: 07/19/2018 Place of | [facility] | | Service: [facility] [phone] [facility] Department: EEG HR - | POINT OF CARE | | [phone] ROUTINE EEG Reason for Exam: Evaluate for [...] Lynn MD. Suggested CPT: | | | 77545 - EEG Routine Awake & Asleep Suggested Dx: R56.9 Unspecified | | | convulsions | | + + + + + + + + | Performing | Address | City/State/Zipcode | Phone Number | | Organization | | | | + + + + + | [facility] | [address] | [place], [place] | | | [facility] | [address] | [address] | | | TESTS | | | | + + + + + documented in this encounter Visit Diagnoses + + | Diagnosis | + + | Convulsions, unspecified convulsion type (HCC) - Primary | + + documented in this encounter
--- OUTSIDE RECORDS SUMMARY | ~2019-12-12 | XMS | Clinical Summary ---
Demographics + + + | Address | [address] | | | [place] [address] | + + + | Home Phone | | + + + | Preferred Language | Unknown | + + + | Marital Status | | + + + | Judaism Affiliation | Unknown | + + + | Race | Unknown | + + + | Ethnic Group | Unknown | + + + Author + + + | Author | [facility] | | | and [place] | + + + | Organization | [facility] | | | and [place] | + + + | Address | Unknown | + + + | Phone | Unavailable | + + + Support + + + + + | Name | Relationship | Address | Phone | + + + + + | Jocelyn Spear | ECON | [address] | | | | | CENTER [place], | | | | | [place] [address] | | + + + + + Care Team Providers + +------+ + | Care Research Administrator Name | Role | Phone | + [...]
--- OUTSIDE RECORDS SUMMARY | ~2019-12-12 | XMS | Encounter Summary ---
Demographics + + + | Address | [address] | | | [place] [address] | + + + | Home Phone | | + + + | Preferred Language | Unknown | + + + | Marital Status | | + + + | Anglican Affiliation | Unknown | + + + | Race | Unknown | + + + | Ethnic Group | Unknown | + + + Author + + + | Author | [facility] | | | and [place] | + + + | Organization | [facility] | | | and [place] | + + + | Address | Unknown | + + + | Phone | Unavailable | + + + Support + + + + + | Name | Relationship | Address | Phone | + + + + + | Jocelyn Spear | ECON | [address] | | | | | [place], | | | | | [place] [address] | | + + + + + Care Team Providers + +------+ + | Care Custody Assistant Name | Role | Phone | [...] | | | | EMERGENCY CENTER | [place], [place] | | | | | [address] [facility] | [address] | | | | | [place], [place] | [phone] | | | | | [address] | | | | | | [phone] | | | +--------+ + + + [...]
--- OUTSIDE RECORDS SUMMARY | ~2019-12-12 | XMS | Encounter Summary ---
Demographics + + + | Address | [address] | | | [place] [address] | + + + | Home Phone | | + + + | Preferred Language | Unknown | + + + | Marital Status | | + + + | Muslim Affiliation | Unknown | + + + | Race | Unknown | + + + | Ethnic Group | Unknown | + + + Author + + + | Author | [facility] | | | and [place] | + + + | Organization | [facility] | | | and [place] | + + + | Address | Unknown | + + + | Phone | Unavailable | + + + Support + + + + + | Name | Relationship | Address | Phone | + + + + + | Jocelyn Spear | ECON | [address] | | | | | [place], | | | | | [place] [address] | | + + + + + Care Team Providers + +------+ + | Care Salesperson Women'S Dresses Name | Role | Phone | + [...] | | | EMERGENCY CENTER | [address] [place], [place] | | | 10/29/ | | [address] | [address] | | | 2018 | | [place], [place] | [phone] | | | | | [address] | | | | | | [phone] | | | +--------+ + + + [...] Thompson - 03/15/2019 5:46 AM PDT KENY [id number] yearsXR CHEST | | 2 VIEW FRONTAL [...]
--- OUTSIDE RECORDS SUMMARY | ~2019-12-12 | XMS | Encounter Summary ---
Demographics + + + | Address | [address] | | | [place] [address] | + + + | Home Phone | | + + + | Preferred Language | Unknown | + + + | Marital Status | | + + + | Evangelical Affiliation | Unknown | + + + [...] Team Providers + +------+ + | Care Reservoir Engineer Name | Role | Phone | + [...] | | 2008 | Records | [address] | [phone] | | | | | [address] | | | | | | [place], [place] | | | | | | [address] | | | +--------+ + + + [...]
--- OUTSIDE RECORDS SUMMARY | ~2019-12-12 | XMS | Encounter Summary ---
Demographics + + + | Address | [address] | | | [place] [address] | + + + | Home Phone | | + + + | Preferred Language | Unknown | + + + | Marital Status | | + + + | Taoism Affiliation | Unknown | + + + | Race | White | + + + | Ethnic Group | Not or | + + + Author + + + | Author | [facility] | + + + | Organization | [facility] | + + + | Address | Unknown | + + + | Phone | Unavailable | + + + Support + + +---------+ + | Name | Relationship | Address | Phone | + + +---------+ + | Jocelyn Spear | ECON | Unknown | | + + +---------+ + Care Team Providers + +------+ + | Care Finishing Room Supervisor Name | Role | Phone | [...] | | | gy | Convulsions, | [address] | | | | | | unspecified | [address] | | | | | | convulsion | Tami Isable | | | | | | type (HCC) | [place], [place] | | | | | | Procedures | [address] | | | | | | EEG ROUTINE | Phone: | | | | | | | [phone] | | | | | | | Fax: | | | | | | | [phone] | | +--------+--------+ + + + + [...] | | unspecified, | PA-C URGENT | [address] | | | | | not | HEALTH CARE | [address] | | | | | intractable, | CENTER [address] | [facility] | | | | | without | [address] | [place], [place] | | | | | status | AVE | [address] | | | | | epilepticus | YU, | Phone: | | | | | Procedures | [place] [address] | [phone] | | | | | [place] NEW | Phone: | Fax: | | | | | PATIENT | [phone] | [phone] | | | | | LEVEL V HI | Fax: | | | | | | EST PATIENT | [phone] | | | | | | LEVEL V | | | +--------+--------+ + + + + Encounter Details +--------+---------+ + + + | Date | Type | Department | Care Team | Description | +--------+---------+ + + + | 07/19/ | Office | Neurology at | Mandy Sanchez | Convulsions, | | 2018 | Visit | [facility] & | MD Jerrica [address] | unspecified | | | | Healing [address] | [address] | convulsion type | | | | Avjeyson Mailcode: CH8C | [place], [place] | ([facility]) (Primary Dx) | | | | [facility] | [address] | | | | | and Healing, | [phone] | | | | | | | | | | | Floor [place], [place] | | | | | | [address] | | | | | | [phone] | | | +--------+---------+ + + + [...] while sitting in the exam room." Per [facility] ED notes, these episodes have been [...] to work and focus - 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 Has happened in the car - had just enough time to socket puller and stop as he has a [...] touch over the face was normal. CEREBELLUM: Lkcsgz-or-swkh was normal. GAIT: Antalgic casual gait. MOTOR: [...] Spear Date of : 1990 Medical | [facility] - | | Record Number: [id number] Date of Test: 07/19/2018 Place of | [facility] | | Service: [facility] [phone] [facility] Department: EEG HR - | POINT OF CARE | | [phone] ROUTINE EEG Reason for Exam: Evaluate for [...] Lynn MD. Suggested CPT: | | | 63555 - EEG Routine Awake & Asleep Suggested Dx: R56.9 Unspecified | | | convulsions | | + + + + + + + + | Performing | Address | City/State/Zipcode | Phone Number | | Organization | | | | + + + + + | [facility] | [address] | [place], [place] | | | [facility] | [address] | [address] | | | TESTS | | | | + + + + + documented in this encounter Visit Diagnoses + + | Diagnosis | + + | Convulsions, unspecified convulsion type (HCC) - Primary | + + documented in this encounter
--- OUTSIDE RECORDS SUMMARY | ~2019-12-12 | XMS | Clinical Summary ---
Demographics + + + | Address | [address] | | | [place] [address] | + + + | Home Phone | | + + + | Preferred Language | Unknown | + + + | Marital Status | | + + + | Buddhism Affiliation | Unknown | + + + | Race | White | + + + | Ethnic Group | Not or | + + + Author + + + | Author | [facility] | + + + | Organization | [...] Team Providers + +------+ + | Care Sand Mill Grinder Name | Role | Phone | + +------+ + | No Pcp Per Patient | PCP | Unavailable | + +------+ + Source Comments [facility] is fully live on both [facility] and [facility] Allergies + + + + + [...] | | | + +--------+ +--------+-------+---------+--------+ | VP BIOLOGY MEDICAID | VP BIOLOGY | xxxxxxxx | 4/23/2 | | | [...] Person | Self | [birth year] | [address] | | | al/Fam | | 1990 | [phone] | | | [place] | | | [address] (Home) | [place] [address] | + +--------+ +--------+ + +"
--- OUTSIDE RECORDS SUMMARY | ~2019-12-12 | XMS | Encounter Summary ---
Demographics + + + | Address | [address] | | | [place] [address] | + + + | Home Phone | | + + + | Preferred Language | Unknown | + + + | Marital Status | | + + + | Baptist Affiliation | Unknown | + + + | Race | Unknown | + + + | Ethnic Group | Unknown | + + + Author + + + | Author | [facility] | | | and [place] | + + + | Organization | [facility] | | | and [place] | + + + | Address | Unknown | + + + | Phone | Unavailable | + + + Support + + + + + | Name | Relationship | Address | Phone | + + + + + | Jocelyn Spear | ECON | [address] | | | | | [place], | | | | | [place] [address] | | + + + + + Care Team Providers + +------+ + | Care Criminology Teacher Name | Role | Phone | + [...] | | | | [address] | [place] [address] | | | | | [place], [place] | [phone] | | | | | [address] | | | | | | [phone] | | | +--------+ + + + [...]
--- OUTSIDE RECORDS SUMMARY | ~2019-12-12 | XMS | Encounter Summary ---
Demographics + + + | Address | [address] | | | [place] [address] | + + + | Home Phone | | + + + | Preferred Language | Unknown | + + + | Marital Status | | + + + | Yarsanism Affiliation | Unknown | + + + | Race | Unknown | + + + | Ethnic Group | Unknown | + + + Author + + + | Author | [facility] | | | and [place] | + + + | Organization | [facility] | | | and [place] | + + + | Address | Unknown | + + + | Phone | Unavailable | + + + Support + + + + + | Name | Relationship | Address | Phone | + + + + + | Jocelyn Spear | ECON | [address] | | | | | [place], | | | | | [place] [address] | | + + + + + Care Team Providers + +------+ + | Care Entry Examiner Name | Role | Phone | + +------+ + PCP | Unavailable | + +------+ + Encounter Details +--------+ + + + + | Date | Type | Department | Care Team | Description | +--------+ + + + + | 08/06/ | Emergency | [facility] | aTe [facility] | Rib contusion, left, | | 2017 | | [facility] | [address] [facility] | initial encounter; | | | | [facility] | [address] [place], [place] | Vomiting, | | | | [address] | [address] | intractability of | | | | [place] | [phone] | vomiting not | | | | [address] | | specified, presence | | | | [phone] | | of nausea not | | [...] based on patient | | size.Oral contrast: Zebyblp521 mL Isovue-300 FINDINGS: Chest: No bulky axillary, [...] - 1.035 | EXTERNAL | | | [place], | | | LAB | | | [...] | | | Urine | performed at [facility], [address] | | LAB | | | | [address], | | | | | | [place] [address] | | | | + + + [...] LAB | | | | performed at [facility], [address] | | | | | | [address], | | | | | | [place] [address] | | | | + + + [...] - 03/16/2019 1:30 AM WENDIE Bowman HARMON1990XR HAND | | RIGHT03/07/2017 11:25 AM [...] | | Basophils | performed at [facility], [address] | [address] | LAB | | | | [address], | | | | | | [place] [address] | | | | + + + [...] | | | | | | at [facility], [address] | | | | | | [place] | | | | | | [address] | | | | + + + [...]
== END 2019-12-12 21:04 | disposition home or self-care (01) ==
LOC: ED 18:00
DX: R10.9 Unspecified abdominal pain (principal); R11.2 Nausea with vomiting, unspecified; F17.200 Nicotine dependence, unspecified, uncomplicated; Z88.1 Allergy status to other antibiotic agents; Z88.0 Allergy status to penicillin
CPT/HCPCS: 74177; 80053; 81001; 83690; 85025; 96361; 96375; 99284-25; J1170; J1885; J2405; J7030; Q9967

== ENCOUNTER 2020-05-30 17:19 | Emergency (ER) | payer OTHER ==
[~2020-05-30] VITALS: Ht 188 cm; Wt 110.2 kg
[2020-05-30] MEDS ORDERED: ZUPLENZ4 MG PO (18:56)
[2020-05-30] MEDS ORDERED: CIPRO500 MG PO (18:56)
== END 2020-05-30 20:42 | disposition home or self-care (01) ==
LOC: ED 17:19
DX: N41.9 Inflammatory disease of prostate, unspecified (principal); R11.2 Nausea with vomiting, unspecified; F17.200 Nicotine dependence, unspecified, uncomplicated; Z88.0 Allergy status to penicillin; Z88.1 Allergy status to other antibiotic agents
CPT/HCPCS: 71045; 74177; 80053; 81001; 83605; 83690; 85025; 96361; 99284-25; J1885; J2405; J2550; J7030; Q9967

== ENCOUNTER 2023-09-27 13:05 | Emergency (ER) | payer OTHER ==
[~2023-09-27] VITALS: Ht 188 cm; Wt 115.4 kg
[~2023-09-27 13:05] MED LIST: CIPRO500 MG PO; ZUPLENZ4 MG PO
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
[2023-09-27] MEDS ORDERED: LISINOPRIL20 MG PO (13:30)
[2023-09-27] MEDS ORDERED: PREGABALIN150 MG PO (13:30)
[2023-09-27] MEDS ORDERED: OXYCODONE-ACET1 EAC1 PO (13:30)
[2023-09-27] MEDS ORDERED: METOPROLOL SUCC25 MG PO (13:30)
[2023-09-27] MEDS ORDERED: CYMBALTA20 MG PO (13:31)
[2023-09-27] MEDS ORDERED: HYDROmorphone HCL 2 MG/ML VIAL IM ONE (14:15)
[2023-09-27] MEDS ORDERED: HYDROmorphone HCL 1 MG/ML SYR IV PRN (15:00)
[2023-09-27] MEDS ORDERED: SODIUM CHLORIDE 0.9% 1,000 ML IV ONE (15:00)
[2023-09-27] MEDS ORDERED: DEXAMETHASONE SOD PHOS 10 MG/ML VIAL IV ONE (15:00)
[2023-09-27] MEDS ORDERED: KETOROLAC TROMETHAMINE 30 MG/ML VIAL IV ONE (15:00)
[2023-09-27 15:12] LABS: BASOPHILS 0.8 % (0-2); EOSINOPHILS 1.3 % (0-6); HEMATOCRIT 44.7 % (35.0-50.0); HEMOGLOBIN 15.6 g/dL (12.0-18.0); LYMPHOCYTES 23.4 % (24-44); MCH 30.3 (27-36); MCV 86.6 fl (81-99); MONOCYTES 6.4 % (0-12); NEUTROPHILS 68.1 % (39-80); PLATELET COUNT 406 K/uL (140-440); RBC 5.16 M/ul (4.3-5.7); RDW 13.6 (10.5-15.0)
[2023-09-27 15:27] LABS: ALBUMIN 3.6 g/dL (3.4-5.0); ALBUMIN/GLOBULIN RATIO 0.95 (1.1-2.4); ANION GAP 13.9 (7-21); BILIRUBIN, TOTAL 0.2 ng/dL (0.2-1.0); BUN/CREATININE RATIO 13.92 (6.0-28.6); CALCIUM 8.9 mg/dL (8.5-10.1); CREATININE, SERUM 0.79 mg/dL (0.70-1.30); POTASSIUM 3.9 mmol/L (3.5-5.1); PROTEIN, TOTAL 7.4 g/dL (6.4-8.2)
[2023-09-27] MEDS ORDERED: HYDROCODON-ACE1 EAC8 PO (18:26)
[2023-09-27] MEDS ORDERED: METHYLPREDNISOLO4 M1 PO (18:26)
[2023-09-27 18:40] VITALS: BP 154/99
--- NOTE | 2023-09-27 23:33 | EKG ---
[facility] [address] [facility] [address] [place] [address] Signed Sinus tachycardia Nonspecific T wave abnormality Confirmed by Raúl Osuna M.D. ([id number]) on 09/27/2023 11:33:35 PM Electronically Signed By: RAÚL OSUNA MD 09/27/23 2333 PATIENT NAME: KENY GARZON Electrocardiogram DATE OF : 89 PHYSICIAN: RAÚL OSUNA MD REPORT #: [id number] REPORT IS CONFIDENTIAL AND NOT TO BE RELEASED WITHOUT AUTHORIZATION
== END 2023-09-27 18:40 | disposition home or self-care (01) ==
LOC: ED 13:05
PROVIDERS: Emergency Medicine
DX: M51.36 Other intervertebral disc degeneration, lumbar region (principal); M48.061 Spinal stenosis, lumbar region without neurogenic claudication; I10 Essential (primary) hypertension; F17.200 Nicotine dependence, unspecified, uncomplicated; Z98.1 Arthrodesis status; Z79.899 Other long term (current) drug therapy; Z88.0 Allergy status to penicillin; Z88.1 Allergy status to other antibiotic agents
CPT/HCPCS: 36415; 72148; 80053; 85025; 93005; 93010; J1100; J1170; J1885; J7030

== ENCOUNTER 2024-11-24 18:40 | Emergency (ER) | payer OTHER ==
[~2024-11-24] VITALS: Ht 188 cm; Wt 111.0 kg
[~2024-11-24 18:40] MED LIST changes: +CYMBALTA20 MG PO; +HYDROCODON-ACE1 EAC8 PO; +LISINOPRIL20 MG PO; +METHOCARBAMOL750 MG PO; +METHYLPREDNISOLO4 M1 PO; +METOPROLOL SUCC25 MG PO; +OXYCODONE HCL5 MG PO; +OXYCODONE-ACET1 EAC1 PO; +PERCOCET 10-321 EACH PO; +PREGABALIN150 MG PO
[2024-11-24] MEDS ORDERED: VITAMIN D21250 MCG PO (19:18)
[2024-11-24] MEDS ORDERED: VARENICLINE TA0.5 MG PO (19:19)
[2024-11-24 19:39] LABS: BILIRUBIN, URINE NEGATIVE (negative); BLOOD/HGB, URINE TRACE-I (Negative); KETONE, URINE NEGATIVE (Negative); LEUK ESTERASE, URINE NEGATIVE (negative); NITRITE, URINE NEGATIVE (negative)
[2024-11-24 19:47] LABS: BACTERIA, URINE RARE /hpf (negative); CASTS, URINE NONE SEEN \\lpf; COLLECTION TYPE, URINE CLEAN CATCH; CRYSTALS, URINE NONE SEEN (0-1+); EPITHELIAL CELLS, URINE SQUAMOUS 1+ /lpf (0-1+); REFLEX CULTURE, URINE No (No)
[2024-11-24 20:15] LABS: HEMATOCRIT 43.5 % (35.0-50.0); HEMOGLOBIN 15.5 g/dL (12.0-18.0); MCH 30.2 (27-36); MCHC 35.5 g/dl (30-36); MCV 85.1 fl (81-99); PLATELET COUNT 342 K/uL (140-440); RBC 5.11 M/ul (4.3-5.7); RDW 13.6 (10.5-15.0)
[2024-11-24] MEDS ORDERED: MORPHINE SULFATE 10 MG/ML VIAL IM ONE (20:15)
[2024-11-24 20:30] LABS: ALBUMIN 3.7 g/dL (3.4-5.0); ALBUMIN/GLOBULIN RATIO 1.16 (1.1-2.4); ANION GAP 13.6 (7-21); BILIRUBIN, TOTAL 0.3 mg/dL (0.2-1.0); BUN/CREATININE RATIO 15.29 (6.0-28.6); CALCIUM 8.6 mg/dL (8.5-10.1); CREATININE, SERUM 0.85 mg/dL (0.70-1.30); POTASSIUM 3.6 mmol/L (3.5-5.1); PROTEIN, TOTAL 6.9 g/dL (6.4-8.2)
[2024-11-24 20:32] LABS: EOSINOPHILS, MANUAL DIFF 1; LYMPHOCYTES, MANUAL DIFF 35; MONOCYTES, MANUAL DIFF 2; NEUTROPHILS, MANUAL DIFF 62
[2024-11-24] MEDS ORDERED: HYDROCODON-ACE1 EA10 PO (22:32)
[2024-11-24] MEDS ORDERED: HYDROCODONE BIT/ACETAMINOPHEN 5/325 MG 1 TAB HOME.PACK PO ONE (22:45)
[2024-11-24 22:50] VITALS: BP 131/89
== END 2024-11-24 22:52 | disposition home or self-care (01) ==
LOC: ED 18:40
PROVIDERS: Family Medicine
DX: R10.31 Right lower quadrant pain (principal); I10 Essential (primary) hypertension; F17.200 Nicotine dependence, unspecified, uncomplicated; Z88.0 Allergy status to penicillin; Z88.5 Allergy status to narcotic agent; Z88.9 Allergy status to unspecified drugs, medicaments and biological substances
CPT/HCPCS: 36415; 74176; 76870; 80053; 81001; 85025; 96372; 99284-25; A9270; J2270